=== PATIENT | male | born 1985 | race Caucasian/White ===

== ENCOUNTER 2023-10-28 09:30 | Outpatient (CLI) | payer MEDICARE, MEDICAID, SELFPAY ==
--- OUTSIDE RECORDS SUMMARY | 2023-10-28 09:35 | XMS_ITS | Encounter Summary ---
Author Name Unknown Organization [facility] Address [address] [place] [address] Care Team Providers Care Cryptographic Clerk Name Role Phone Found, No Pcp MD Primary Care Provider Unavailab le Reason for Visit * Reason Comments FOLLOW-UP, TEST RESULTS Encounter Details Date Type Department Care Team Description 10/21/2023 Telephone [facility] [address] [place] [address]. [place], [place] [id number] Alicia Lopez MD [address] [place] [id number] FOLLOW-UP, TEST RESULTS Social History Tobacco Use Types Packs/Day Years Used Date Smoking Tobacco: Every Day Cigarettes Smokeless Tobacco: Never Alcohol Use Standard Drinks/Week Comments Yes 0 (1 standard drink = 0.6 oz pur e alcohol) Sex and Gender Information Value Date Recorded Sex Assigned at Not on file Gender Identity Not on file Sexual Orientation Not on file documented as of this encounter Nursing Notes * Margaret Quijano RN - 10/21/2023 9:33 AM CST Spoke with patient regarding note below and relayed the information from Dr. Lopez. Patient verbalized understanding and was transferred to schedule with Dr. Lopez in 6 weeks. Margaret Quijano RN 10/21/2023, 9:34 AM COURSE BARRIER ATTENDANT * Margaret Quijano RN - 10/21/2023 9:31 AM CST ----- Message from Alicia Lopez MD sent at 10/21/2023 7:57 AM RACECOURSE BARRIER ATTENDANT ----- Regarding: follow up Gurvinder Castro came in on Wednesday to see me for concern of an infection/abscess. His CT scan just came back with no evidence of a deep infection. His inflammatory lab CRP is also reassuring at 1.4 lower than 4 weeks ago. Can you please call and reassure Gurvinder? I will see him again in 6 weeks. Thank you Alicia COURSE BARRIER ATTENDANT documented in this encounter Plan of Treatment Upcoming Encounters Date Type Department Care Team Description 11/29/2023 1:20 PM RACECOURSE BARRIER ATTENDANT Appointment [facility] [address] [place] [address]. [place] [address] Alicia Lopez MD [address] [place] [address] documented as of this encounter Visit Diagnoses Not on filedocumented in this encounter Care Teams Cryptographic Clerk Relationship Specialty Start Date End Date Found, No PcpMD [address] [place] [address] PCP - General 05/25/23 documented as of this encounter
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
--- OUTSIDE RECORDS SUMMARY | 2023-10-28 09:35 | XMS_ITS | Encounter Summary ---
Author Name Unknown Organization [facility] Address [address] [place] [address] Care Team Providers Care Structural Iron Erector Name Role Phone Found, No Pcp MD Primary Care Provider Unavailab le Reason for Visit * Procedure/Equipment (Routine) - Incomplete Specialty Diagnoses / Procedures Referred By Contac t Referred To Contact Diagnoses Postoperative examination Procedures XR Knee Rt 2 Views Alicia Lopez MD [address] [place] [address] Referral ID Status Reason Start Date Expiration Date V isits Requested Visits Authorized [id number] Incomplete 10/18/2023 01/16/2025 1 1 Encounter Details Date Type Department Care Team Description 10/18/2023 8:45 AM LAST MODEL DEPARTMENT SUPERVISOR Ancillary Procedure [facility] [address] [place] [address] Alicia Lopez MD [address] [place] [address] Postoperative examination Social History Tobacco Use Types Packs/Day Years Used Date Smoking Tobacco: Every Day Cigarettes Smokeless Tobacco: Never Alcohol Use Standard Drinks/Week Comments Yes 0 (1 standard drink = 0.6 oz pur e alcohol) Sex and Gender Information Value Date Recorded Sex Assigned at Not on file Gender Identity Not on file Sexual Orientation Not on file documented as of this encounter Plan of Treatment Upcoming Encounters Date Type Department Care Team Description 11/29/2023 1:20 PM LAST MODEL DEPARTMENT SUPERVISOR Appointment [facility] [address] [place] [address] Alicia Lopez MD [address] [place] [address] documented as of this encounter Procedures Procedure Name Priority Date/Time Associated Diagnosis Comments XR FEMUR LT 2 VIEWS Routine 10/18/2023 9 :04 AM LAST MODEL DEPARTMENT SUPERVISOR Postoperative examination XR KNEE RT 2 VIEWS Routine 10/18/2023 9: 04 AM LAST MODEL DEPARTMENT SUPERVISOR Postoperative examination documented in this encounter Results * XR Knee Rt 2 Views (10/18/2023 9:04 AM LAST MODEL DEPARTMENT SUPERVISOR) Anatomical Region Laterality Modality Lower Extremity, Knee Computed R adiography 10/18/2023 9:04 AM LAST MODEL DEPARTMENT SUPERVISOR Narrative 10/18/2023 9:54 AM LAST MODEL DEPARTMENT SUPERVISOR EXAM: XR KNEE RT 2 VIEWS LOCATION: [place] [address] DATE: 10/18/2023 INDICATION: Post op, Encounter for follow-up examination afte COMPARISON: 09/23/2023 IMPRESSION: Proximal tibial ORIF. The fourth screw from the bottom is fracture similar to prior. Otherwise hardware is intact. Unchanged alignment. Procedure Note Sandra Simon MD - 10/18/2023 EXAM: XR KNEE RT 2 VIEWS LOCATION: [place] [address] DATE: 10/18/2023 INDICATION: Post op, Encounter for follow-up examination afte COMPARISON: 09/23/2023 IMPRESSION: Proximal tibial ORIF. The fourth screw from the bottom isfracture similar to prior. Otherwise hardware is intact. Unchangedalignment. Alicia Lopez MD RAD GD * XR Femur Lt 2 Views (10/18/2023 9:04 AM LAST MODEL DEPARTMENT SUPERVISOR) Anatomical Region Laterality Modality Lower Extremity, Leg, Thigh Comp uted Radiography 10/18/2023 9:04 AM LAST MODEL DEPARTMENT SUPERVISOR Narrative 10/18/2023 9:53 AM LAST MODEL DEPARTMENT SUPERVISOR EXAM: XR FEMUR LT 2 VIEWS LOCATION: [place] [address] DATE: 10/18/2023 INDICATION: Post op, Encounter for follow-up examination afte COMPARISON: 09/06/2023. IMPRESSION: Locked intramedullary adair and screw fixation across a left distal femur fracture. Fracture lines remain visible on the lateral view. No evidence of hardware failure. No interval change in alignment. Procedure Note Bijan Gauthier MD - 10/18/2023 EXAM: XR FEMUR LT 2 VIEWS LOCATION: [facility] 435 DATE: 10/18/2023 INDICATION: Post op, Encounter for follow-up examination afte COMPARISON: 09/06/2023. IMPRESSION: Locked intramedullary adair and screw fixation across a leftdistal femur fracture. Fracture lines remain visible on the lateral view.No evidence of hardware failure. No interval change in alignment. Alicia Lopez MD RAD GD documented in this encounter Visit Diagnoses Diagnosis Postoperative examination Follow-up examination, following unspecified surgery documented in this encounter Care Teams Structural Iron Erector Relationship Specialty Start Date End Date Found, No PcpMD [address] [place] [address] PCP - General 05/25/23 documented as of this encounter
--- OUTSIDE RECORDS SUMMARY | 2023-10-28 09:35 | XMS_ITS | Encounter Summary ---
Author Name Unknown Organization [facility] Address [address] [place] [address] Care Team Providers Care Banking Services Advisor Name Role Phone Found, No Pcp MD Primary Care Provider Unavailab le Reason for Visit * Procedure/Equipment (Routine) - Incomplete Specialty Diagnoses / Procedures Referred By Contac t Referred To Contact Procedures XR Tibia Fibula Rt 2 Views Neil Estrada MD [address] [place] [address] Referral ID Status Reason Start Date Expiration Date V isits Requested Visits Authorized [id number] Incomplete 09/23/2023 12/22/2024 1 1 Encounter Details Date Type Department Care Team Description 09/23/2023 7:40 PM BOAT RIGGER Ancillary Procedure [facility] [address] [place] [address] Social History Tobacco Use Types Packs/Day Years [...] Department Care Team Description 11/29/2023 1:20 PM BOAT RIGGER Appointment [facility] [address] [place] [address] Alicia Lopez MD [address] [place], [place] [phone] documented as of this encounter Procedures Procedure Name Priority Date/Time Associated Diagnosis Comments XR TIBIA FIBULA RT 2 VIEWS STAT 09/23/2023 8:19 PM BOAT RIGGER documented in this encounter Results * XR Tibia Fibula Rt 2 Views (09/23/2023 8:19 PM BOAT RIGGER) Anatomical Region Laterality Modality Lower Extremity, Knee, Leg, Foot & Ankle Computed Radiography 09/23/2023 8:19 PM BOAT RIGGER Narrative 09/23/2023 8:28 PM BOAT RIGGER EXAM: XR TIBIA FIBULA RT 2 VIEWS LOCATION: [facility] DATE: 09/23/2023 INDICATION: RLE pain, some discharge from surgical incision noted at home, concern for possible fluid collection or bony changes., PAIN COMPARISON: 07/27/2023 IMPRESSION: Proximal tibial ORIF. Fractures of 2 of the orthopedic screws redemonstrated. No plain film evidence of loosening. No kelsy bony destruction to suggest osteomyelitis. Distal tibia and fibula are intact. Moderate degenerative changes in the knee. Procedure Note Patricio Koo MD - 09/23/2023 EXAM: XR TIBIA FIBULA RT 2 VIEWS LOCATION: [facility] DATE: 09/23/2023 INDICATION: RLE pain, some discharge from surgical incision noted at home,concern for possible fluid collection or bony changes., PAIN COMPARISON: 07/27/2023 IMPRESSION: Proximal tibial ORIF. Fractures of 2 of the orthopedic screwsredemonstrated. No plain film evidence of loosening. No kelsy bonydestruction to suggest osteomyelitis. Distal tibia and fibula are intact.Moderate degenerative changes in the knee. Neil Estrada MD RAD GD documented in this encounter Visit Diagnoses Not on filedocumented in this encounter Care Teams Banking Services Advisor Relationship Specialty Start Date End Date Found, No Pcp, [address] [place] [address] PCP - General 05/25/23 documented as of this encounter
--- OUTSIDE RECORDS SUMMARY | 2023-10-28 09:35 | XMS_ITS | Encounter Summary ---
Author Name Unknown Organization [facility] Address [address] [place] [address] Care Team Providers Care Raisin Separator Operator Name Role Phone Found, No Pcp MD Primary Care Provider Unavailab le Reason for Visit * Procedure/Equipment (Routine) - Incomplete Specialty Diagnoses / Procedures Referred By Contac t Referred To Contact Diagnoses Tibial plateau fracture, right, closed, with nonunion, subsequent encounter Procedures CT Knee Rt WO IV Cont Alicia Lopez MD [address] [place] [id number] Referral ID Status Reason Start Date Expiration Date V isits Requested Visits Authorized [id number] Incomplete 10/18/2023 01/16/2025 1 1 Encounter Details Date Type Department Care Team Description 10/18/2023 9:15 AM NEWSPAPER SUBSCRIPTION SOLICITOR Ancillary Procedure [facility] [address] [place] [address]. [place], [place] [id number] Alicia Lopez MD [address] [place] [phone] Tibial plateau fracture, right, closed, with nonunion, subsequent encounter Social History Tobacco Use Types Packs/Day Years [...] Department Care Team Description 11/29/2023 1:20 PM NEWSPAPER SUBSCRIPTION SOLICITOR Appointment [facility] 435 Orthopedics Clinic [address] [facility] [place] [address] Alicia Lopez MD [address] [place] [address] documented as of this encounter Procedures Procedure Name Priority Date/Time Associated Diagnosis Comments CT KNEE RT WO IV CONT Routine 10/18/2023 9:35 AM NEWSPAPER SUBSCRIPTION SOLICITOR Tibial plateau fracture, right, closed, with nonunion, subsequent encounter documented in this encounter Results * CT Knee Rt WO IV Cont (10/18/2023 9:35 AM NEWSPAPER SUBSCRIPTION SOLICITOR) Anatomical Region Laterality Modality Lower Extremity, Knee, Leg, Skeletal, Thigh Computed Tomography 10/18/2023 9:35 AM NEWSPAPER SUBSCRIPTION SOLICITOR Narrative 10/18/2023 3:50 PM NEWSPAPER SUBSCRIPTION SOLICITOR EXAM: CT KNEE RT WO IV CONT LOCATION: [place] [address] DATE: 10/18/2023 INDICATION: Evaluate healing of medial [...] RT WO IV CONT [facility]: [facility] DATE: 10/18/2023 INDICATION: Evaluate healing [...] of reduction. Alicia Lopez MD RAD CT documented in this encounter Visit Diagnoses Diagnosis Tibial plateau fracture, right, closed, with nonunion, subsequent encounter documented in this encounter Care Teams Raisin Separator Operator Relationship Specialty Start Date End Date Found, No Pcp, [address] [place] [address] PCP - General 05/25/23 documented as of this encounter
--- OUTSIDE RECORDS SUMMARY | 2023-10-28 09:35 | XMS_ITS | Encounter Summary ---
Author Name Unknown Organization [facility] Address [address] [place] [address] Care Team Providers Care Insurance Biller Name Role Phone Found, No Pcp MD Primary Care Provider Unavailab le Encounter Details Date Type Department Care Team Description 10/18/2023 10:00 AM LEGAL SERVICE SPECIALIST Lab Visit [facility] [address] [place] [id number] Postoperative examination; Tibial plateau fracture, right, closed, with nonunion, [...] Department Care Team Description 11/29/2023 1:20 PM LEGAL SERVICE SPECIALIST Appointment [facility] [address] [place] [id number] Alicia Lopez MD [address] [place] [address] documented as of this encounter Procedures Procedure Name Priority Date/Time Associated Diagnosis Comments C-REACTIVE PROTEIN Routine 10/18/2023 10 :08 AM LEGAL SERVICE SPECIALIST Postoperative examination Tibial plateau fracture, right, closed, with nonunion, subsequent encounter documented in this encounter Results * (ABNORMAL) C-Reactive Protein (10/18/2023 10:08 AM LEGAL SERVICE SPECIALIST) C-Reactive Protein 1.4(H) 0.0 - 0.5 mg/dL 10/18/2023 2:27 PM LEGAL SERVICE SPECIALIST [facility] Blood Venipuncture / Unknown 10/18/2023 10:08 AM LEGAL SERVICE SPECIALIST 10/18/2023 10:08 AM LEGAL SERVICE SPECIALIST Alicia Lopez MD LAB_1 Performing Organization Address City/State/[facility] Co de Phone Number [facility] [address] [phone] documented in this encounter Visit Diagnoses Diagnosis Postoperative examination Follow-up examination, following unspecified surgery Tibial plateau fracture, right, closed, with nonunion, subsequent encounter documented in this encounter Care Teams Insurance Biller Relationship Specialty Start Date End Date Found, No Pcp, [address] [place] [address] PCP - General 05/25/23 documented as of this encounter
--- OUTSIDE RECORDS SUMMARY | 2023-10-28 09:35 | XMS_ITS | Encounter Summary ---
Author Name Unknown Organization [facility] Address [address] [place] [address] Care Team Providers Care Oral Therapist Name Role Phone Found, No Pcp MD Primary Care Provider Unavailab le Reason for Visit * (Routine) - Incomplete Specialty Diagnoses / Procedures Referred By Contac t Referred To Contact Procedures POC US Soft Tissue Neil Estrada MD [address] [place] [address] Referral ID Status Reason Start Date Expiration Date V isits Requested Visits Authorized [id number] Incomplete 09/23/2023 12/22/2024 1 1 Encounter Details Date Type Department Care Team Description 09/23/2023 7:25 PM SUPPLY CHAIN LOGISTICS MANAGER Ancillary Procedure [facility] POC US ED [address] [place] [id number] Social History Tobacco Use Types Packs/Day Years [...] Department Care Team Description 11/29/2023 1:20 PM SUPPLY CHAIN LOGISTICS MANAGER [facility]ointment [facility] Clinic [address] [place] [address] Alicia Lopez MD [address] [place] [address] documented as of this encounter Procedures Procedure Name Priority Date/Time Associated Diagnosis Comments POC US SOFT TISSUE Routine 09/23/2023 7: 24 PM SUPPLY CHAIN LOGISTICS MANAGER documented in this encounter Results * POC US Soft Tissue (09/23/2023 7:24 PM SUPPLY CHAIN LOGISTICS MANAGER) Anatomical Region Laterality Modality Other Narrative 09/23/2023 8:04 PM SUPPLY CHAIN LOGISTICS MANAGER Handy Chavez MD ? 09/23/2023 ??8:05 PM [facility] Point of Care Ultrasound Interpretation POC US Soft Tissue Date/Time: 09/23/2023 8:04 PM Performed by: Handy Chavez MD Authorized by: Neil Estrada MD ?? Point of Care Ultrasound: Soft Tissue Indication: ??Soft tissue redness/swelling Window: Adequate for full imaging and interpretation Findings/ Impression (Within the context of limited [id number] ultrasound): ??No fluid collection and Findings consistent with: Chronic changes of surgical incision sites, no obvious fluid collections or abscess formation. Neil Estrada MD RAD POC US documented in this encounter Visit Diagnoses Not on filedocumented in this encounter Care Teams Oral Therapist Relationship Specialty Start Date End Date Found, No PcpMD [address] [place] [address] PCP - General 05/25/23 documented as of this encounter
--- OUTSIDE RECORDS SUMMARY | 2023-10-28 09:35 | XMS_ITS | Clinical Summary ---
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 mg/dL. GFR, Estimated >60 >60 mL/min/1.7 3m2 07/28/2023 7:58 AM [facility] Blood Venipuncture Butterfly / Unknown 07/28/2023 7:08 AM CDT 07/28/2023 7:12 AM CDT Mariposa Gusman APRN, CNP LAB_[address] [phone] * Platelets (07/28/2023 7:08 AM CDT) Platelets 206 150 - 450 x10(9)/L 07/28/2023 7:28 AM [facility] Blood Venipuncture Butterfly / Unknown 07/28/2023 7:08 AM CDT 07/28/2023 7:12 AM CDT Mariposa Gusman APRN, CNP LAB_1 [place] [address], [facility] [phone] * (ABNORMAL) Hemoglobin, Blood (07/28/2023 7:08 AM CDT) Hemoglobin 11.4(L) 13.5 - 17.5 g/dL 07/28/2023 7:28 AM CDT [facility] Blood Venipuncture Butterfly / Unknown 07/28/2023 7:08 AM CDT 07/28/2023 7:12 AM CDT Mariposa Kelley [employer] JOANN AVERY LAB_[address] [address], [facility] [phone] from Last 3 Months Advance Directives Latest Code Status on File Code Status Date Activated Date Inactivated Comments Full Code 07/27/2023 5:15 PM 07/28/2023 6:24 PM Code Status History Code Status Date Activated Date Inactivated Comments Full Code 10/24/2021 5:51 AM 11/05/2021 2:05 PM Full Code 10/23/2021 9:56 PM 10/24/2021 5:51 AM Care Teams Agent Producer Relationship Specialty Start Date End Date Found, No Pcp, [address] [place] [address] PCP - General 05/25/23
--- OUTSIDE RECORDS SUMMARY | 2023-10-28 09:36 | XMS_ITS | Encounter Summary ---
Author Name Unknown Organization [facility] Address [address] [place] [address] Care Team Providers Care Roll Cutting Operator Name Role Phone Found, No Pcp Primary Care Provider Unavailab le Encounter Details Date Type Department Care Team Description 07/27/2023 Orders Only [facility] DEPARTMENT Provider, [place] [address] Social History Tobacco Use Types Packs/Day Years Used Date Smoking Tobacco: Never Smokeless Tobacco: Never Alcohol Use Standard Drinks/Week Comments Yes 0 (1 standard drink = 0.6 oz pur e alcohol) Sex and Gender Information Value Date Recorded Sex Assigned at Not on file Gender Identity Not on file Sexual Orientation Not on file documented as of this encounter Plan of Treatment Upcoming Encounters Date Type Department Care Team Description 11/29/2023 1:20 PM PLAYER DEVELOPMENT MANAGER Appointment [facility] [address] [place] [address]. [place] [address] Alicia Lopez MD [address] [place] [address] [phone] documented as of this encounter Procedures Procedure Name Priority Date/Time Associated Diagnosis Comments EKG 07/27/2023 documented in this encounter Results * EKG (07/27/2023) Interface Provider EKG documented in this encounter Visit Diagnoses Not on filedocumented in this encounter Care Teams Roll Cutting Operator Relationship Specialty Start Date End Date Found, No Pcp, [address] [place] [address] PCP - General 05/25/23 documented as of this encounter
--- OUTSIDE RECORDS SUMMARY | 2023-10-28 09:36 | XMS_ITS | Encounter Summary ---
Author Name Unknown Organization [facility] Address [address] [place] [address] Care Team Providers Care Ocean Fishing Guide Name Role Phone Found, No Pcp MD Primary Care Provider Unavailab le Reason for Visit * Auth/Cert Specialty Diagnoses / Procedures Referred By Contac t Referred To Contact Diagnoses Tibial plateau fracture, right, closed, with nonunion, subsequent encounter . Procedures OPEN REDUCTION INTERNAL FIXATION TIBIAL PLATEAU FRACTURE Referral ID Status Reason Start Date Expiration Date Visits Re quested Visits Authorized [id number] 1 1 Encounter Details Date Type Department Care Team Description 07/27/2023 5:25 PM CDT Ancillary Procedure [facility] [address] [place] [id number] Alicia Lopez MD [address] [place] [address] [phone] Social History Tobacco Use Types Packs/Day Years [...] Department Care Team Description 11/29/2023 1:20 PM FIRE TENDER Appointment [facility] [address] [place] [address] Alicia Lopez MD [address] [place] [address] [phone] documented as of this encounter Procedures Procedure Name Priority Date/Time Associated Diagnosis Comments XR KNEE RT 2 VIEWS Routine 07/27/2023 5: 50 PM CDT documented in this encounter Results * XR Knee Rt 2 Views (07/27/2023 5:50 PM CDT) Anatomical Region Laterality Modality Lower Extremity, Knee Computed R adiography 07/27/2023 5:50 PM CDT Narrative 07/27/2023 9:29 PM CDT EXAM: XR KNEE RT 2 VIEWS LOCATION: [facility] DATE: 07/27/2023 INDICATION: Status post revision open reduction internal fixation of right tibial fracture. COMPARISON: 05/10/2023. IMPRESSION: Postsurgical changes from plate and screw fixation of the proximal tibial fracture. The medial and lateral side plates appear unchanged. There is a new posterior plate with screws. There is new hyperdensity at the fracture site, likely representing graft placement. No evidence of immediate hardware complication. Adjacent postsurgical soft tissue swelling and gas. No evidence of new acute fracture. No dislocation. No significant knee joint effusion. Procedure Note Dale Swartz MD - 07/27/2023 EXAM: XR KNEE RT 2 VIEWS LOCATION: [facility] DATE: 07/27/2023 INDICATION: Status post revision open reduction internal fixation of righttibial fracture. COMPARISON: 05/10/2023. IMPRESSION: Postsurgical changes from plate and screw fixation of the proximal tibialfracture. The medial and lateral side plates appear unchanged. There is anew posterior plate with screws. There is new hyperdensity at the fracturesite, likely representing graft placement. No evidence of immediatehardware complication. Adjacent postsurgical soft tissue swelling andgas. No evidence of new acute fracture. No dislocation. No significant knee joint effusion. Mariposa Gusman POCKET MACHINE OPERATOR, CHIEF RESOURCE OFFICER RAD GD documented in this encounter Visit Diagnoses Not on filedocumented in this encounter Care Teams Ocean Fishing Guide Relationship Specialty Start Date End Date Found, No PcpMD [address] [place] [address] PCP - General 05/25/23 documented as of this encounter
--- OUTSIDE RECORDS SUMMARY | 2023-10-28 09:36 | XMS_ITS | Encounter Summary ---
Author Name Unknown Organization [facility] Address [address] [place] [address] Care Team Providers Care Floor Person Name Role Phone Found, No Pcp MD Primary Care Provider Unavailab le Reason for Visit * Reason Comments QUESTIONS, GENERAL Encounter Details Date Type Department Care Team Description 07/29/2023 Telephone [facility] [address] [place] [address]. [place], [place] [phone] Alicia Lopez MD [address] [place] [address] [phone] QUESTIONS, GENERAL Social History Tobacco Use Types Packs/Day Years [...] Nursing Notes * Margaret Quijano RN - 08/02/2023 8:[address] Lopez stated she could see the pt today to discuss his images. Called and pt is in agreement with this and is scheduled with Dr. Lopez today. Margaret Quijano RN 08/02/2023, 8:45 AM * Margaret Quijano RN - 07/29/2023 10:17 AM CDT Called and spoke with the patient. He states he had reviewed the XR and it seems like there was more work done than expected. Seems like there is a lot of bone missing. He does request to speak directly to Dr. Lopez. He is aware it would most likely be early next week. Please advise thank you. Margaret Quijano RN 07/29/2023, 10:26 AM * Jane Craft - 07/29/2023 9:53 AM CDT GENERAL QUESTIONS How may we help you today? Patient would like to speak with a member of Dr. Lopez's care team Describe your symptoms/concerns: patient wanted to speak with Dr. 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 Lopez If we are unable to reach you can we leave a detailed message on your voicemail? Yes If we are unable to reach you can we send you a message in [employer]? No [Supervisor Vacuum Metalizing/Gravel Wheeler: Relay to patient; We make every effort to get back to you sameday, however it may take 1-2 business days depending on the nature of the communication.] Jane Craft 07/29/2023, 9:55 AM documented in this encounter Plan of Treatment Upcoming Encounters Date Type Department Care Team Description 11/29/2023 1:20 PM DIRECTOR PROCESS Appointment [facility] [address] [place] [address]. [place] [address] Alicia Lopez MD [address] [place] [address] [place] [address] documented as of this encounter Visit Diagnoses Not on filedocumented in this encounter Care Teams Floor Person Relationship Specialty Start Date End Date Found, No Pcp, [address] [place] [address] PCP - General 05/25/23 documented as of this encounter
--- OUTSIDE RECORDS SUMMARY | 2023-10-28 09:36 | XMS_ITS | Encounter Summary ---
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 Care - Admitted Since 07/27/2023 No services have been selected for the patient. Transport Needs: Discharge Transport Needs: Family or friend will provide If family or friend will provide discharge transport, provide name and contact information: mom to transport Interdisciplinary Rounding done with:: Ebd Special Education Teacher, Charge Nurse, Practitioner, Dietitian/Nutrition Services If the patient is medically cleared and ready for discharge, are there any psychosocial barriers atdischarge?: No psychosocial barriers Primary Care: Primary Care Clinic: [facility] Primary Care Physician: Annemarie Young Functional Level Prior: Functional Screen (Baseline Prior to Admission) Ambulation: Assitive equipment Transferring: Independent Toileting: Independent Bathing: Assistive equipment Dressing: Independent Eating: Independent Communication: Understands/communicates without difficulty Swallowing: Swallows foods/liquids without difficulty Meal Preparation: Independent Laundry: Independent Finances: Independent Shopping: Independent 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 Met with patient, introduced myself and my role as window caser/social security benefits interviewer. Verified demographics (address, emergency contact, PCP and insurance). Patient currently lives with mother in a house with 4 stairs to enter and 10 stairs within their home. His bedroom is on the 1st level of the home. His baseline mobility is independent with ADLs and uses DME (prothesis and shower chair) at home. Denies current or previous services at home. Has support from mom. Patient denied any concerns related to chemical or mental health. Per chart review patient has a history of opoid use disorder and is currently managing symptoms with suboxone. Patient uses own automobile to get to their medical appointments. PCP is Annemarie Young at [facility]. Patients denies case management community support. Admitted for closed fracture of right tibial plateau on 07/27/2023. Patient not medically cleared and not ready for discharge, pending clinical improvement and medicalclearance. Provider anticipates patient will need another 0-1 more days in the hospital for med clearance. Anticipated Discharge Plan: Home Barriers to their discharge: N/A Community Resources: N/A Anticipated transport at time of discharge: mother to transport CM/SW Team will continue to follow for coordination of care, discharge planning and offer support as needed. PABLO Crane * Plan of Care - Aniyah Rodriguez RN - 07/28/2023 10:55 AM CDT [facility] Plan of Care Note Assessment: Plan of Care Plan: Assess and Intervene as Needed Subjective: Pain is constant and really achy and it feels like there is a lot of pressure and pulling behind my knee. Objective: A&Ox4. Communicates needs. Pt complained of 9/10 pain on RLE, mainly behind knee andback of thigh. Assess skin color, pedal & popliteal pulse, cap refill- all WDL. Able to wiggle toes and plantar flexion/extension. PRN PO pain meds given, ice/heat- pain controlled. VSS. --- End of Report --- * Plan of Care - Jimmie Quinones RN - 07/28/2023 7:44 AM CDT [facility] Plan of Care Note Assessment: Plan of care Plan: Assess and intervene as needed. Subjective: I hope to get out of here quick. Objective: A&O x4. CO 9/10 pain to RLE, medicated per MAR with PRN Ketamine, Dilaudid and Robaxin, not effective per pt. Denies CP, SOB, N/V, and dizziness. Declined skin assessment. RLE elevated. Tolerating IV Abx. Call light within reach. Able to make needs known. Bed alarm on for safety. Blood pressure 110/56, Pulse 70, Temp 98.8, SpO2 94%, Respirations 16. --- End of Report --- * Plan of Care - Niraj Dooley RN - 07/27/2023 8:54 PM CDT Patient is alert and oriented x4. VSS. Continues to have right leg pain rating 7/10. Given PRN painmedication x3. Declined skin assessment. Affected leg is intact with yazan wrap. CMS intact.On IV fluid not urinating yet. Started ANCEF 1 g IV for surgical prophylaxis. Patient had clear liquid no N/Vverbalized then advanced regular diet. No concerns at this time will continue with POC. * Plan of Care - Khushboo Lux RN - 07/27/2023 3:17 PM CDT I completed a full assessment and assessments as ordered and per policy on this patient during my work shift. Reassessments completed during my work shift are unchanged unless documented. documented in this encounter Admitting Diagnoses Diagnosis Closed fracture of right tibial plateau Tibial plateau fracture, right, closed, with nonunion, subsequent encounter documented in this encounter Administered Medications Inactive Administered Medications - up to 3 most recent administrations Medication Order MAR Action Action Date Dose Rate Site acetaminophen (TYLENOL) tablet 1,000 mg 1,000 mg, Oral, TID, First dose on Wed07/27/23 at 2000, Until Discontinued Given 07/28/2023 2:20 PM CDT 1,000 mg Given 07/28/2023 8:16 AM CDT 1,000 mg Given 07/27/2023 7:23 PM CDT 1,000 mg aspirin tablet 325 mg 325 mg, Oral, DAILY, First dose on Wed07/28/23 at 0800, Until Discontinued Given 07/28/2023 8:16 AM CDT 325 mg bisacodyl (DULCOLAX) rectal suppository 10 mg 10 mg, Rectal, DAILY PRN, Constipation, No stool in the last 3 days, Starting on Wed07/27/23 at 1714, Until Wed07/28/23 at 1817, Cumulative bowel medication orders. If no stool in last day start Senna-S BID PRN no stool, if no stool in last 2 days add Miralax DAILY PRN no stool, if no stool in last 3 days add bisacodyl suppository DAILY PRN until patient stools. When patient stools stop giving PRN meds and continue monitoring for bowel activity. When no stools X 1 day, begin regimen again until patient stools., Post-op buprenorphine-naloxone (SUBOXONE) 2-0.5 MG per film 2 Film 2 Film, Sublingual, BID, First dose on Wed07/29/23 at 0800, Until Discontinued, Do not cut, chew, or swallow film. For sublingual administration: Place film under the tongue close to the base on the left or right side until the film completely dissolves. If two films are needed for a single dose, place the second film under the tongue on the opposite side from the first film in a manner to minimize overlapping as much as possible. Avoid eating or drinking until film dissolves. Once film is completely dissolved, swish a sip of water around teeth and gums and swallow to avoid damage to these areas; wait at least 1 hour after administration to brush teeth. For buccal administration: Place one film on the inside of the right or left cheek. If more than one film is needed, the additional film should be placed on the inside of the opposite cheek. Keep the film on the inside of the cheek until completely dissolved. Once film is completely dissolved, swish a sip of water around teeth and gums and swallow to avoid damage to these areas; wait at least 1 hour after administration to brush teeth. buprenorphine-naloxone (SUBOXONE) 8-2 MG per film 1 Film 1 Film, Sublingual, DAILY, First dose on Wed07/28/23 at 0800, Until Discontinued, Do not cut, chew, or swallow film. For sublingual administration: Place film under the tongue close to the base on the left or right side until the film completely dissolves. If two films are needed for a single dose, place the second film under the tongue on the opposite side from the first film in a manner to minimize overlapping as much as possible. Avoid eating or drinking until film dissolves. Once film is completely dissolved, swish a sip of water around teeth and gums and swallow to avoid damage to these areas; wait at least 1 hour after administration to brush teeth. For buccal administration: Place one film on the inside of the right or left cheek. If more than one film is needed, the additional film should be placed on the inside of the opposite cheek. Keep the film on the inside of the cheek until completely dissolved. Once film is completely dissolved, swish a sip of water around teeth and gums and swallow to avoid damage to these areas; wait at least 1 hour after administration to brush teeth. Given 07/28/2023 11:02 AM CDT 1 Film ceFAZolin (ANCEF) 1 g in sodium chloride 0.9 % 50 mL IVPB ADS 1 g, Intravenous, Administer over 30 Minutes, Q8H (NON-STND), First dose on Wed07/27/23 at 2000, For 2 doses, Give x 24 hours, if first dose given pre-op, continue X 2 more doses for total 24h therapy Give first post-op dose 8 hours after previous dose. Started 07/28/2023 3:37 AM CDT 1 g Started 07/27/2023 8:27 PM CDT 1 g dextrose (D50) IVPB 25 g 25 g, Intravenous, Q15MIN PRN, Hypoglycemia, Per Adult Hypoglycemia Treatment Protocol, Starting on Wed07/27/23 at 1715, Per Hypoglycemic episode: Give 25g IV push, recheck POCT glucose in 15 minutes, if result less than 70mg/dL, may repeat. After 2 doses notify Practitioner. May continue to treat while waiting for call back. enoxaparin (LOVENOX) prefilled syringe 30 mg 30 mg, Subcutaneous, BID, First dose on Wed07/27/23 at 2000, Last dose on Wed08/10/23 at 0800, For 28 doses, For VTE/DVT prophylaxis HIGH ALERT medication Given 07/27/2023 8:27 PM CDT 30 mg Abdom inal Tissue fentaNYL (SUBLIMAZE) injection 25-50 mcg 25-50 mcg, Intravenous, [id number], Pain, Starting on Wed07/27/23 at 1248, Until Wed07/27/23 at 1705, 25 mcg IV q5min prn based on the patient's pain scale rating for mild to moderate pain (1 to 5). 50 mcg IV q5min prn based on the patient's pain scale rating for moderate to severe pain (6 to 10). Total PACU fentanyl dose not to exceed 200 mcg. Use fentanyl initially for a short acting agent for treatment of acute post operative pain. May use in conjuction with a longer acting agent for optimal pain control. Respiratory rate must be greater than 10 to administer medications., PACU (only) Given 07/27/2023 3:15 PM CDT 50 mcg Given 07/27/2023 3:00 PM CDT 50 mcg Given 07/27/2023 2:50 PM CDT 50 mcg gabapentin (NEURONTIN) capsule 800 mg 800 mg, Oral, TID, First dose on Wed07/27/23 at 2000, Until Discontinued Given 07/28/2023 2:20 PM CDT 800 mg Given 07/28/2023 8:14 AM CDT 800 mg Given 07/27/2023 7:22 PM CDT 800 mg glucagon rDNA (diagnostic) (GLUCAGEN) injection 1 mg 1 mg, Intramuscular, Q15MIN PRN, Hypoglycemia, Per Adult Hypoglycemia Treatment Protocol, Starting on Wed07/27/23 at 1715, Until Wed07/28/23 at 1817, Per Hypoglycemic episode: Give 1mg IM, turn patient on side to prevent aspiration if vomits. If appropriate, establish IV access STAT. Recheck POCT glucose in 15 minutes, if result less than 70mg/dL and still no IV access, may repeat 1mg IM x 1. Recheck POCT glucose in 15 minutes, if result is less than 70mg/dL notify Practitioner. glucose (GLUTOSE) 40 % oral gel 15 g of glucose 15 g of glucose, Oral, Q15MIN PRN, Hypoglycemia, Per Adult Hypoglycemia Treatment Protocol, Starting on Wed07/27/23 at 1715, Until Wed07/28/23 at 181, Give 15g orally, recheck POCT glucose in 15 minutes, if result less than 70mg/dL, may repeat. After 2 doses notify Practitioner. May continue to treat while waiting for call back. 37.5g tube delivers 15g of glucose HYDROmorphone (DILAUDID) injection 0.5 mg 0.5 mg, Intravenous, Q10MIN PRN, Pain, Starting on Wed07/27/23 at 1338, Until Wed07/28/23 at 1047, For 12 doses, PACU USE ONLY Total PACU hydromorphone dose not to exceed 6 mg per hour Given 07/27/2023 4:30 PM CDT 0.5 mg Given 07/27/2023 4:00 PM CDT 0.5 mg Given 07/27/2023 3:35 PM CDT 0.5 mg HYDROmorphone (DILAUDID) injection 1 mg 1 mg, Intravenous, ONCE, On Wed07/27/23 at 1415, For 1 dose Given 07/27/2023 1:55 PM CDT 1 mg HYDROmorphone (DILAUDID) tablet 4-6 mg 4-6 mg, Oral, Q3H PRN, Pain, Starting on Wed07/27/23 at 1442, Until Wed07/28/23 at 1817 Given 07/28/2023 3:26 PM CDT 6 mg Given 07/28/2023 8:15 AM CDT 6 mg Given 07/27/2023 8:37 PM CDT 4 mg hydrOXYzine pamoate (VISTARIL) capsule 50 mg 50 mg, Oral, ONCE, On Wed07/27/23 at 1400, For 1 dose Given 07/27/2023 1:48 PM CDT 50 mg ketamine (KETALAR) injection 5-10 mg 5-10 mg, Intravenous, Q4H PRN, Pain, Starting on Wed07/27/23 at 1443, Until Wed07/28/23 at 1817, Ketamine 5-10 mg IV given over 2-3 minutes Q4H PRN. Given 07/28/2023 4:45 AM CDT 5 mg Given 07/27/2023 10:16 PM CDT 5 mg lactated ringers infusion Intravenous, at 30 mL/hr, CONTINUOUS, Starting on Wed07/27/23 at 0845, Pre-op Started 07/27/2023 11:36 AM CDT Restarted 07/27/2023 9:29 AM CDT Started 07/27/2023 8:58 AM CDT 30 mL/hr methocarbamol (ROBAXIN) tablet 500 mg 500 mg, Oral, Q6H PRN, Muscle Spasms, Starting on Wed07/27/23 at 1715, Until Wed07/28/23 at 1344 Given 07/28/2023 6:52 AM CDT 500 mg Given 07/27/2023 6:29 PM CDT 500 mg methocarbamol (ROBAXIN) tablet 500-1,000 mg 500-1,000 mg, Oral, QID PRN, Muscle Spasms, Starting on Wed07/27/23 at 1443, Until Wed07/28/23 at 1817 metoclopramide (REGLAN) injection 5 mg 5 mg, Intravenous, Q6H PRN, Nausea, Vomiting, Starting on Wed07/27/23 at 1715, Until Wed07/28/23 at 1817, Give 1st line medications, then 2nd line, then 3rd line. Progress to next line if medication is ineffective after 15 minutes, or has been previously ineffective, or if a medication for a line is not ordered. May use medication from any line if patient preference indicates. If third line agent is ineffective, call Practitioner. If unable to give IV medications contact Practitioner. Aromatherapy may be used at any time as adjunct therapy. 1st Line - ondansetron 2nd Line -prochlorperazine 3rd Line - metoclopramide ondansetron (ZOFRAN) injection 4 mg 4 mg, Intravenous, Q8H PRN, Nausea, Vomiting, Starting on Wed07/27/23 at 1715, Until Wed07/28/23 at 1817, Give 1st line medications, then 2nd line, then 3rd line. Progress to next line if medication is ineffective after 15 minutes, or has been previously ineffective, or if a medication for a line is not ordered. May use medication from any line if patient preference indicates. If third line agent is ineffective, call Practitioner. If unable to give IV medications contact Practitioner. Aromatherapy may be used at any time as adjunct therapy. 1st Line - ondansetron 2nd Line -prochlorperazine 3rd Line - metoclopramide oxyCODONE (ROXICODONE) immediate release tablet 5-10 mg 5-10 mg, Oral, Q4H PRN, Pain, Starting on Wed07/27/23 at 1715, Until Wed07/28/23 at 1344, Give PO opioid if able to take PO and pain not well controlled with other medications or interventions. Given 07/28/2023 6:52 AM CDT 10 mg Given 07/27/2023 6:29 PM CDT 10 mg oxyCODONE (ROXICODONE) immediate release tablet 5-10 mg 5-10 mg, Oral, ONCE PRN, Pain, Starting on Wed07/27/23 at 1341, Until Wed07/27/23 at 1348, For 1 dose, Once PRN for pain. PACU use only. If pain score is 1-5 in PACU - give 5mg (1 tablet). If pain score is 6-10 in PACU - give 10mg (2 tablets). If multiple oral opioids ordered, administer agents in order as directed by Practitioner., PACU (only) Given 07/27/2023 1:48 PM CDT 10 mg polyethylene glycol (MIRALAX) oral powder 17 g 17 g, Oral, DAILY PRN, Constipation, No stool in the last 2 days, Starting on Wed07/27/23 at 1714, Until Wed07/28/23 at 1817, Cumulative bowel medication orders. If no stool in last day start Senna-S BID PRN no stool, if no stool in last 2 days add Miralax DAILY PRN no stool, if no stool in last 3 days add bisacodyl suppository DAILY PRN until patient stools. When patient stools stop giving PRN meds and continue monitoring for bowel activity. When no stools X 1 day, begin regimen again until patient stools., Post-op prochlorperazine (COMPAZINE) injection 10 mg 10 mg, Intravenous, Q6H PRN, Nausea, Vomiting, Starting on Wed07/27/23 at 1715, Until Wed07/28/23 at 1817, Give 1st line medications, then 2nd line, then 3rd line. Progress to next line if medication is ineffective after 15 minutes, or has been previously ineffective, or if a medication for a line is not ordered. May use medication from any line if patient preference indicates. If third line agent is ineffective, call Practitioner. If unable to give IV medications contact Practitioner. Aromatherapy may be used at any time as adjunct therapy. 1st Line - ondansetron 2nd Line -prochlorperazine 3rd Line - metoclopramide sennosides-docusate sodium (SENOKOT S) 8.6-50 MG per tablet 1 Tablet 1 Tablet, Oral, BID, First dose on Wed07/27/23 at 2000, Until Discontinued, as laxative/stimulant, stool-softening agent, Post-op Given 07/28/2023 8:14 AM CDT 1 Tablet Given 07/27/2023 7:22 PM CDT 1 Tablet sennosides-docusate sodium (SENOKOT S) 8.6-50 MG per tablet 2 Tablet 2 Tablet, Oral, BID PRN, Constipation, No stool in the last day, Starting on Wed07/27/23 at 1714, Until Wed07/28/23 at 1817, Cumulative bowel medication orders. If no stool in last day start Senna-S BID PRN no stool, if no stool in last 2 days add Miralax DAILY PRN no stool, if no stool in last 3 days add bisacodyl suppository DAILY PRN until patient stools. When patient stools stop giving PRN meds and continue monitoring for bowel activity. When no stools X 1 day, begin regimen again until patient stools., Post-op sodium chloride 0.9% infusion Intravenous, at 100 mL/hr, CONTINUOUS, Starting on Wed07/27/23 at 1745, Saline lock pod1 if adequate PO intake and VSS Started 07/27/2023 7:47 PM CDT 100 mL/hr documented in this encounter Active and Recently Administered Medications Times are shown in CDT. Scheduled Medication Order 07/26/2023 07/27/2023 07/28/2023 acetaminophen (TYLENOL) tablet 1,000 mg 1,000 mg, Oral, TID, First dose on Wed07/27/23 at 2000, Until Discontinued 192 (Given - Provider: Niraj Dooley RN) 0816 (Given - Provider: Aniyah Rodriguez, ERNA)1420 (Given - Provider: Aniyah Rodriguez, ERNA) aspirin tablet 325 mg 325 mg, Oral, DAILY, First dose on Wed07/28/23 at 0800, Until Discontinued 0816 (Given - Provid er: Aniyah Rodriguez RN) buprenorphine-naloxone (SUBOXONE) 2-0.5 MG per film 2 Film 2 Film, Sublingual, BID, First dose on Wed07/29/23 at 0800, Until Discontinued, Do not cut, chew, or swallow film. For sublingual administration: Place film under the tongue close to the base on the left or right side until the film completely dissolves. If two films are needed for a single dose, place the second film under the tongue on the opposite side from the first film in a manner to minimize overlapping as much as possible. Avoid eating or drinking until film dissolves. Once film is completely dissolved, swish a sip of water around teeth and gums and swallow to avoid damage to these areas; wait at least 1 hour after administration to brush teeth. For buccal administration: Place one film on the inside of the right or left cheek. If more than one film is needed, the additional film should be placed on the inside of the opposite cheek. Keep the film on the inside of the cheek until completely dissolved. Once film is completely dissolved, swish a sip of water around teeth and gums and swallow to avoid damage to these areas; wait at least 1 hour after administration to brush teeth. buprenorphine-naloxone (SUBOXONE) 8-2 MG per film 1 Film (CANCELED) 1 Film, Sublingual, DAILY, First dose on Wed07/28/23 at 0800, Until Discontinued, Do not cut, chew, or swallow film. For sublingual administration: Place film under the tongue close to the base on the left or right side until the film completely dissolves. If two films are needed for a single dose, place the second film under the tongue on the opposite side from the first film in a manner to minimize overlapping as much as possible. Avoid eating or drinking until film dissolves. Once film is completely dissolved, swish a sip of water around teeth and gums and swallow to avoid damage to these areas; wait at least 1 hour after administration to brush teeth. For buccal administration: Place one film on the inside of the right or left cheek. If more than one film is needed, the additional film should be placed on the inside of the opposite cheek. Keep the film on the inside of the cheek until completely dissolved. Once film is completely dissolved, swish a sip of water around teeth and gums and swallow to avoid damage to these areas; wait at least 1 hour after administration to brush teeth. 1102 (Given - Provid er: Aniyah Rodriguez RN - Comment: pt requested to hold med due to other pain meds) ceFAZolin (ANCEF) 1 g in sodium chloride 0.9 % 50 mL IVPB ADS (COMPLETED) 1 g, Intravenous, Administer over 30 Minutes, Q8H (NON-STND), First dose on Wed07/27/23 at 2000, For 2 doses, Give x 24 hours, if first dose given pre-op, continue X 2 more doses for total 24h therapy Give first post-op dose 8 hours after previous dose. 2026 (Started - Provider: Niraj Dooley RN)2111 (Infused - Provider: Niraj Dooley RN) 336 (Started - Provider: Jimmie Quinones, ERNA)041 (Infused - Provider: Jimmie Quinones, ERNA) ceFAZolin (ANCEF) 2 g in sodium chloride 0.9 % 50 mL IVPB ADS (COMPLETED) 2 g, Intravenous, Administer over 30 Minutes, ONCE (NON-SCHEDULED), Starting on Wed07/27/23 at 0827, For 1 dose, For patient weight less than or equal to 119 kg PRE-OP, Pre-op 0954 (Started - Provider: Karlene Vaughn APRN, [employer]) enoxaparin (LOVENOX) prefilled syringe 30 mg (CANCELED) 30 mg, Subcutaneous, BID, First dose on Wed07/27/23 at 2000, Last dose on Wed08/10/23 at 0800, For 28 doses, For VTE/DVT prophylaxis HIGH ALERT medication 2026 (Given - Provider: Niraj Dooley RN) gabapentin (NEURONTIN) capsule 800 mg 800 mg, Oral, TID, First dose on Wed07/27/23 at 1999, Until Discontinued 1921 (Given - Provider: Niraj Dooley RN) 0814 (Given - Provider: Aniyah Rodriguez, ERNA)1420 (Given - Provider: Aniyah Rodriguez, ERNA) HYDROmorphone (DILAUDID) injection 1 mg (COMPLETED) 1 mg, Intravenous, ONCE, On Wed07/27/23 at 1415, For 1 dose 1355 (Given - Provider: Libia Perez, ERNA) hydrOXYzine pamoate (VISTARIL) capsule 50 mg (COMPLETED) 50 mg, Oral, ONCE, On Wed07/27/23 at 1400, For 1 dose 1348 (Given - Provider: Libia Perez RN) sennosides-docusate sodium (SENOKOT S) 8.6-50 MG per tablet 1 Tablet 1 Tablet, Oral, BID, First dose on Wed07/27/23 at 2000, Until Discontinued, as laxative/stimulant, stool-softening agent, Post-op 1922 (Given - Provider: Niraj Dooley RN) 0814 (Given - Provider: Aniyah Rodriguez RN) tranexamic acid (CYKLOKAPRON) 1000 mg in sodium chloride 0.9% (10 mg/mL) 100 mL IVPB premix (COMPLETED)(Linked Group 1) 1,000 mg, Intravenous, ONCE, On Wed07/27/23 at 0845, For 1 dose, Administer once at incision and once at start of closure., Pre-op 0950 (Given - Provider: Karlene Vaughn APRN, EDWIGE) tranexamic acid (CYKLOKAPRON) 1000 mg in sodium chloride 0.9% (10 mg/mL) 100 mL IVPB premix (COMPLETED)(Linked Group 1) 1,000 mg, Intravenous, ONCE, On Wed07/27/23 at 0845, For 1 dose, Administer once at incision and once at start of closure., Pre-op 1246 (Given - Provider: Karlene Vaughn APRN, EDWIGE) Continuous Medication Order 07/26/2023 07/27/2023 07/28/2023 lactated ringers infusion (CANCELED) Intravenous, at 30 mL/hr, CONTINUOUS, Starting on Wed07/27/23 at 0845, Pre-op 0858 (Started - Provider: José Miguel Vega RN)0928 (Stopped - Provider: Karlene Vaughn APRN, EDWIGE - Comment: Switch to gravity)0929 (Restarted - Provider: Karlene Vaughn APRN, SHIP WIRER)1136 (Started - Provider: Karlene Vaughn APRN, SHIP WIRER)1320 (Infused - Provider: Karlene Vaughn APRN, EDWIGE) sodium chloride 0.9% infusion Intravenous, at 100 mL/hr, CONTINUOUS, Starting on Wed07/27/23 at 1745, Saline lock pod1 if adequate PO intake and VSS 1947 (Started - Provider: Lamar Rosas RN) PRN Medication Order 07/26/2023 07/27/2023 07/28/2023 benzocaine-menthol (Chloraseptic) lozenge 1 Lozenge 1 Lozenge, Oral, Q2H PRN, Throat Pain, Starting on Wed07/27/23 at 1715, Until Wed07/28/23 at 1817 bisacodyl (DULCOLAX) rectal suppository 10 mg(Linked Group 2) 10 mg, Rectal, DAILY PRN, Constipation, No stool in the last 3 days, Starting on Wed07/27/23 at 1714, Until Wed07/28/23 at 1817, Cumulative bowel medication orders. If no stool in last day start Senna-S BID PRN no stool, if no stool in last 2 days add Miralax DAILY PRN no stool, if no stool in last 3 days add bisacodyl suppository DAILY PRN until patient stools. When patient stools stop giving PRN meds and continue monitoring for bowel activity. When no stools X 1 day, begin regimen again until patient stools., Post-op calcium carbonate (TUMS) chewable tablet 500-1,000 mg 500-1,000 mg, Oral, QID PRN, Heartburn, Dyspepsia, Starting on Wed07/27/23 at 1715, Until Wed07/28/23 at 1817, Each tablet provides 200 mg elemental calcium dextrose (D50) IVPB 25 g(Linked Group 3) 25 g, Intravenous, Q15MIN PRN, Hypoglycemia, Per Adult Hypoglycemia Treatment Protocol, Starting on Wed07/27/23 at 1715, Per Hypoglycemic episode: Give 25g IV push, recheck POCT glucose in 15 minutes, if result less than 70mg/dL, may repeat. After 2 doses notify Practitioner. May continue to treat while waiting for call back. fentaNYL (SUBLIMAZE) injection 25-50 mcg (CANCELED) 25-50 mcg, Intravenous, [id number], Pain, Starting on Wed07/27/23 at 1248, Until Wed07/27/23 at 1705, 25 mcg IV q5min prn based on the patient's pain scale rating for mild to moderate pain (1 to 5). 50 mcg IV q5min prn based on the patient's pain scale rating for moderate to severe pain (6 to 10). Total PACU fentanyl dose not to exceed 200 mcg. Use fentanyl initially for a short acting agent for treatment of acute post operative pain. May use in conjuction with a longer acting agent for optimal pain control. Respiratory rate must be greater than 10 to administer medications., PACU (only) 1450 (Given - Provider: Khushboo Lux, ERNA)1500 (Given - Provider: Khushboo Lux RN)1515 (Given - Provider: Khushboo Lux RN) glucagon rDNA (diagnostic) (GLUCAGEN) injection 1 mg(Linked Group 3) 1 mg, Intramuscular, Q15MIN PRN, Hypoglycemia, Per Adult Hypoglycemia Treatment Protocol, Starting on Wed07/27/23 at 1715, Until Wed07/28/23 at 1817, Per Hypoglycemic episode: Give 1mg IM, turn patient on side to prevent aspiration if vomits. If appropriate, establish IV access STAT. Recheck POCT glucose in 15 minutes, if result less than 70mg/dL and still no IV access, may repeat 1mg IM x 1. Recheck POCT glucose in 15 minutes, if result is less than 70mg/dL notify Practitioner. glucose (GLUTOSE) 40 % oral gel 15 g of glucose(Linked Group 3) 15 g of glucose, Oral, Q15MIN PRN, Hypoglycemia, Per Adult Hypoglycemia Treatment Protocol, Starting on Wed07/27/23 at 1715, Until Wed07/28/23 at 1817, Give 15g orally, recheck POCT glucose in 15 minutes, if result less than 70mg/dL, may repeat. After 2 doses notify Practitioner. May continue to treat while waiting for call back. 37.5g tube delivers 15g of glucose HYDROmorphone (DILAUDID) injection 0.5 mg (CANCELED) 0.5 mg, Intravenous, Q10MIN PRN, Pain, Starting on Wed07/27/23 at 1338, Until Wed07/28/23 at 1047, For 12 doses, PACU USE ONLY Total PACU hydromorphone dose not to exceed 6 mg per hour 1406 (Given - Provider: Libia Perez RN)1417 (Given - Provider: Libia Perez RN)1428 (Given - Provider: Libia Perez RN)1438 (Given - Provider: Libia Perez RN)1450 (Given - Provider: Khushboo Lux, ERNA)1500 (Given - Provider: Khushboo Lux, ERNA)1515 (Given - Provider: Khushboo Lux, ERNA)1535 (Given - Provider: Libia Perez RN)1600 (Given - Provider: Libia Perez RN)1630 (Given - Provider: Libia Perez RN) HYDROmorphone (DILAUDID) tablet 4-6 mg 4-6 mg, Oral, Q3H PRN, Pain, Starting on Wed07/27/23 at 1442, Until Wed07/28/23 at 1817 2037 (Given - Provider: Niraj Dooley RN) 0815 (Given - Provider: Aniyah Rodriguez RN)1526 (Given - Provider: Aniyah Rodriguez RN) ketamine (KETALAR) injection 5-10 mg 5-10 mg, Intravenous, Q4H PRN, Pain, Starting on Wed07/27/23 at 1443, Until Wed07/28/23 at 1817, Ketamine 5-10 mg IV given over 2-3 minutes Q4H PRN. 2216 (Given - Provider: Niraj Dooley RN) 0445 (Given - Provider: Jimmie Quinones, ERNA) methocarbamol (ROBAXIN) tablet 500 mg (CANCELED) 500 mg, Oral, Q6H PRN, Muscle Spasms, Starting on Wed07/27/23 at 1715, Until Wed07/28/23 at 1344 1829 (Given - Provider: Elisabet Fofana) 0652 (Given - Provider: Jimmie Quinones, ERNA) methocarbamol (ROBAXIN) tablet 500-1,000 mg 500-1,000 mg, Oral, QID PRN, Muscle Spasms, Starting on Wed07/27/23 at 1443, Until Wed07/28/23 at 1817 metoclopramide (REGLAN) injection 5 mg(Linked Group 4) 5 mg, Intravenous, Q6H PRN, Nausea, Vomiting, Starting on Wed07/27/23 at 1715, Until Wed07/28/23 at 1817, Give 1st line medications, then 2nd line, then 3rd line. Progress to next line if medication is ineffective after 15 minutes, or has been previously ineffective, or if a medication for a line is not ordered. May use medication from any line if patient preference indicates. If third line agent is ineffective, call Practitioner. If unable to give IV medications contact Practitioner. Aromatherapy may be used at any time as adjunct therapy. 1st Line - ondansetron 2nd Line -prochlorperazine 3rd Line - metoclopramide naloxone (NARCAN) injection 0.2 mg 0.2 mg, Intravenous, PRN PER PARAMETERS, Opioid Reversal, Excessive Sedation/Respiratory Rate less than 8 breaths per minute.? Notify Practitioner if given., Starting on Wed07/27/23 at 1715, Until Wed07/28/23 at 1817, Excessive Sedation/Respiratory Rate less than 8 breaths per minute.? Notify Practitioner if given. ondansetron (ZOFRAN) injection 4 mg(Linked Group 4) 4 mg, Intravenous, Q8H PRN, Nausea, Vomiting, Starting on Wed07/27/23 at 1715, Until Wed07/28/23 at 1817, Give 1st line medications, then 2nd line, then 3rd line. Progress to next line if medication is ineffective after 15 minutes, or has been previously ineffective, or if a medication for a line is not ordered. May use medication from any line if patient preference indicates. If third line agent is ineffective, call Practitioner. If unable to give IV medications contact Practitioner. Aromatherapy may be used at any time as adjunct therapy. 1st Line - ondansetron 2nd Line -prochlorperazine 3rd Line - metoclopramide oxyCODONE (ROXICODONE) immediate release tablet 5-10 mg (CANCELED) 5-10 mg, Oral, Q4H PRN, Pain, Starting on Wed07/27/23 at 1715, Until Wed07/28/23 at 1344, Give PO opioid if able to take PO and pain not well controlled with other medications or interventions. 182 (Given - Provider: Elisabet Fofana) 0274 (Given - Provider: Jimmie Quinones RN) oxyCODONE (ROXICODONE) immediate release tablet 5-10 mg (COMPLETED) 5-10 mg, Oral, ONCE PRN, Pain, Starting on Wed07/27/23 at 1341, Until Discontinued, For 1 dose, Once PRN for pain. PACU use only. If pain score is 1-5 in PACU - give 5mg (1 tablet). If pain score is 6-10 in PACU - give 10mg (2 tablets). If multiple oral opioids ordered, administer agents in order as directed by Practitioner., PACU (only) 1348 (Given - Provider: Libia Perez, RN) polyethylene glycol (MIRALAX) oral powder 17 g(Linked Group 2) 17 g, Oral, DAILY PRN, Constipation, No stool in the last 2 days, Starting on Wed07/27/23 at 1714, Until Wed07/28/23 at 1817, Cumulative bowel medication orders. If no stool in last day start Senna-S BID PRN no stool, if no stool in last 2 days add Miralax DAILY PRN no stool, if no stool in last 3 days add bisacodyl suppository DAILY PRN until patient stools. When patient stools stop giving PRN meds and continue monitoring for bowel activity. When no stools X 1 day, begin regimen again until patient stools., Post-op prochlorperazine (COMPAZINE) injection 10 mg(Linked Group 4) 10 mg, Intravenous, Q6H PRN, Nausea, Vomiting, Starting on Wed07/27/23 at 1715, Until Wed07/28/23 at 1817, Give 1st line medications, then 2nd line, then 3rd line. Progress to next line if medication is ineffective after 15 minutes, or has been previously ineffective, or if a medication for a line is not ordered. May use medication from any line if patient preference indicates. If third line agent is ineffective, call Practitioner. If unable to give IV medications contact Practitioner. Aromatherapy may be used at any time as adjunct therapy. 1st Line - ondansetron 2nd Line -prochlorperazine 3rd Line - metoclopramide sennosides-docusate sodium (SENOKOT S) 8.6-50 MG per tablet 2 Tablet(Linked Group 2) 2 Tablet, Oral, BID PRN, Constipation, No stool in the last day, Starting on Wed07/27/23 at 1714, Until Wed07/28/23 at 1817, Cumulative bowel medication orders. If no stool in last day start Senna-S BID PRN no stool, if no stool in last 2 days add Miralax DAILY PRN no stool, if no stool in last 3 days add bisacodyl suppository DAILY PRN until patient stools. When patient stools stop giving PRN meds and continue monitoring for bowel activity. When no stools X 1 day, begin regimen again until patient stools., Post-op traZODone (DESYREL) tablet 50 mg 50 mg, Oral, HS PRN, Sleep, Starting on Wed07/27/23 at 1724, Until Wed07/28/23 at 1817, Indications: Insomnia vancomycin (VANCOCIN) injection (CANCELED) ONCE PRN, Starting on Wed07/27/23 at 1255, Intra-op 1255 (Given - Provider: Alicia Lopez MD) Linked Groups Order Group 1: tranexamic acid (CYKLOKAPRON) 1000 mg in sodium chloride 0.9% (10 mg/mL) 100 mL IVPB premix (COMPLETED)Jump to med 1,000 mg, Intravenous, ONCE, On Wed07/27/23 at 0845, For 1 dose
Administer once at incision and once at start of closure.
Pre-op Followed by tranexamic acid (CYKLOKAPRON) 1000 mg in sodium chloride 0.9% (10 mg/mL) 100 mL IVPB premix (COMPLETED)Jump to med 1,000 mg, Intravenous, ONCE, On Wed07/27/23 at 0845, For 1 dose
Administer once at incision and once at start of closure.
Pre-op Group 2: sennosides-docusate sodium (SENOKOT S) 8.6-50 MG per tablet 2 TabletJump to med 2 Tablet, Oral, BID PRN, Constipation, No stool in the last day, Starting on Wed07/27/23 at 1714, Until Wed07/28/23 at 1817
Cumulative bowel medication orders. If no stool in last day start Senna-S BID PRN no stool, if no stool in last 2 days add Miralax DAILY PRN no stool, if no stool in last 3 days add bisacodyl suppository DAILY PRN until patient stools. When patient stools stop giving PRN meds and continue monitoring for bowel activity. When no stools X 1 day, begin regimen again until patient stools.
Post-op Or polyethylene glycol (MIRALAX) oral powder 17 gJump to med 17 g, Oral, DAILY PRN, Constipation, No stool in the last 2 days, Starting on Wed07/27/23 at 1714, Until Wed07/28/23 at 1817
Cumulative bowel medication orders. If no stool in last day start Senna-S BID PRN no stool, if no stool in last 2 days add Miralax DAILY PRN no stool, if no stool in last 3 days add bisacodyl suppository DAILY PRN until patient stools. When patient stools stop giving PRN meds and continue monitoring for bowel activity. When no stools X 1 day, begin regimen again until patient stools.
Post-op Or bisacodyl (DULCOLAX) rectal suppository 10 mgJump to med 10 mg, Rectal, DAILY PRN, Constipation, No stool in the last 3 days, Starting on Wed07/27/23 at 1714, Until Wed07/28/23 at 1817
Cumulative bowel medication orders. If no stool in last day start Senna-S BID PRN no stool, if no stool in last 2 days add Miralax DAILY PRN no stool, if no stool in last 3 days add bisacodyl suppository DAILY PRN until patient stools. When patient stools stop giving PRN meds and continue monitoring for bowel activity. When no stools X 1 day, begin regimen again until patient stools.
Post-op Group 3: glucose (GLUTOSE) 40 % oral gel 15 g of glucoseJump to med 15 g of glucose, Oral, Q15MIN PRN, Hypoglycemia, Per Adult Hypoglycemia Treatment Protocol, Starting on Wed07/27/23 at 1715, Until Wed07/28/23 at 1817
Give 15g orally, recheck POCT glucose in 15 minutes, if result less than 70mg/dL, may repeat. After 2 doses notify Practitioner. May continue to treat while waiting for call back. 37.5g tube delivers 15g of glucose
Or dextrose (D50) IVPB 25 gJump to med 25 g, Intravenous, Q15MIN PRN, Hypoglycemia, Per Adult Hypoglycemia Treatment Protocol, Starting on Wed07/27/23 at 1715
Per Hypoglycemic episode: Give 25g IV push, recheck POCT glucose in 15 minutes, if result less than 70mg/dL, may repeat. After 2 doses notify Practitioner. May continue to treat while waiting for call back.
Or glucagon rDNA (diagnostic) (GLUCAGEN) injection 1 mgJump to med 1 mg, Intramuscular, Q15MIN PRN, Hypoglycemia, Per Adult Hypoglycemia Treatment Protocol, Starting on Wed07/27/23 at 1715, Until Wed07/28/23 at 1817
Per Hypoglycemic episode: Give 1mg IM, turn patient on side to prevent aspiration if vomits. If appropriate, establish IV access STAT. Recheck POCT glucose in 15 minutes, if result less than 70mg/dL and still no IV access, may repeat 1mg IM x 1. Recheck POCT glucose in 15 minutes, if result is less than 70mg/dL notify Practitioner.
Group 4: ondansetron (ZOFRAN) injection 4 mgJump to med 4 mg, Intravenous, Q8H PRN, Nausea, Vomiting, Starting on Wed07/27/23 at 1715, Until Wed07/28/23 at 1817
Give 1st line medications, then 2nd line, then 3rd line. Progress to next line if medication is ineffective after 15 minutes, or has been previously ineffective, or if a medication for a line is not ordered. May use medication from any line if patient preference indicates. If third line agent is ineffective, call Practitioner. If unable to give IV medications contact Practitioner. Aromatherapy may be used at any time as adjunct therapy. 1st Line - ondansetron 2nd Line -prochlorperazine 3rd Line - metoclopramide
And prochlorperazine (COMPAZINE) injection 10 mgJump to med 10 mg, Intravenous, Q6H PRN, Nausea, Vomiting, Starting on Wed07/27/23 at 1715, Until 07/28/23 at 1817
Give 1st line medications, then 2nd line, then 3rd line. Progress to next line if medication is ineffective after 15 minutes, or has been previously ineffective, or if a medication for a line is not ordered. May use medication from any line if patient preference indicates. If third line agent is ineffective, call Practitioner. If unable to give IV medications contact Practitioner. Aromatherapy may be used at any time as adjunct therapy. 1st Line - ondansetron 2nd Line -prochlorperazine 3rd Line - metoclopramide
And metoclopramide (REGLAN) injection 5 mgJump to med 5 mg, Intravenous, Q6H PRN, Nausea, Vomiting, Starting on Wed07/27/23 at 1715, Until 07/28/23 at 1817
Give 1st line medications, then 2nd line, then 3rd line. Progress to next line if medication is ineffective after 15 minutes, or has been previously ineffective, or if a medication for a line is not ordered. May use medication from any line if patient preference indicates. If third line agent is ineffective, call Practitioner. If unable to give IV medications contact Practitioner. Aromatherapy may be used at any time as adjunct therapy. 1st Line - ondansetron 2nd Line -prochlorperazine 3rd Line - metoclopramide
And Aromatherapy - Q-easy (CANCELED) Routine, Q8H PRN, Starting on Wed07/27/23 at 1715, Until Specified
Aromatherapy may be used at any time as adjunct therapy as needed for Nausea/Vomiting. documented in this encounter Care Teams Director Epidemiology Relationship Specialty Start Date End Date Found, No Pcp, [address] [place] [address] PCP - General 05/25/23 documented as of this encounter
--- OUTSIDE RECORDS SUMMARY | 2023-10-28 09:36 | XMS_ITS | Encounter Summary ---
Author Name Unknown Organization [facility] Address [address] [place] [address] Care Team Providers Care Clinical Project Manager Name Role Phone Found, No Pcp MD Primary Care Provider Unavailab le Reason for Visit * Reason Comments INFECTION Encounter Details Date Type Department Care Team Description 09/23/2023 Telephone [facility] [address] [place] [address]. [place], [place] [id number] Alicia Lopez MD [address] [place] [address] [phone] INFECTION Social History Tobacco Use Types Packs/Day Years [...] of this encounter Nursing Notes * Margaret Quijano, RN - 09/24/2023 7:[address] Lopez: Looks like the ER did not find any deep infection. Do you mind calling him and start him on 500 mg Keflex qid x 10 days? I am not sure which pharmacy he prefers. I can see him back in early October thank you. Spoke with patient regarding note below and relayed the information from Dr. Lopez. Patient verbalized understanding and Rx has been sent. Pt asks if he should be placing any triple antbx cream on the area and covering with a band aid? He was informed to avoid any creams/ointments but ok to cover with a band aid or gauze pad. Also encouraged him to contact us with any worsening s/s. He does confirm he is still not feeling well today. He was transferred to schedule f/u appt. Margaret Quijano RN 09/24/2023, 8:13 AM RICT CUSTOMS DIRECTOR * Nubia Chambers RN - 09/23/2023 1:28 PM CST Spoke with pt. He states the 2 scabs on the bottom of his incision right below the knee are gettingalittle bigger and are not healing. His incision continues to be red and he thinks its getter darker. Has watery yellowish drainage. No odor. No swelling, Is tender to the touch. Has been ill feelingrecently feels feverish and has chills. Nauseated at times. Has not taken temperature. Everytime heshowers the scabs fall off. Pt is able to send photos. Sent link to his ITYZ. Will await photos.Nubia Partida RN, 09/23/23 1:30 PM RICT CUSTOMS DIRECTOR documented in this encounter Plan of Treatment Upcoming Encounters Date Type Department Care Team Description 11/29/2023 1:20 PM DISTRICT CUSTOMS DIRECTOR Appointment [facility] [address] [place] [address]. [place] [address] Alicia Lopez MD [address] [place] [address] documented as of this encounter Visit Diagnoses Not on filedocumented in this encounter Care Teams Clinical Project Manager Relationship Specialty Start Date End Date Found, No PcpMD [address] [facility] [place] [address] PCP - General 05/25/23 documented as of this encounter
--- OUTSIDE RECORDS SUMMARY | 2023-10-28 09:36 | XMS_ITS | Encounter Summary ---
Author Name Unknown Organization [facility] Address [address] [place] [address] Care Team Providers Care Wellness Assistant Name Role Phone Found, No Pcp MD Primary Care Provider Unavailab le Reason for Visit * Reason Comments APPOINTMENT REQUEST Encounter Details Date Type Department Care Team Description 08/30/2023 Telephone [facility] [address] [facility] [address] [place] [address]. [place], [place] [id number] Alicia Lopez MD [address] [place] [address] [phone] APPOINTMENT REQUEST Social History Tobacco Use Types Packs/Day Years [...] as of this encounter Nursing Notes * Nikia Pritchett - 08/31/2023 8:38 AM CST Patient scheduled with Dr Lopez 09/06 at 10:40. Nikia Pritchett 08/31/2023, 8:38 AM ET FILLER * Susan Nails ATC - 08/31/2023 8:31 AM CST Okay to OB a follow up slot for the patient to see either Mariposa Gusman CNP, APRN or Dr. Lopez on 09/06/23 or 09/13/23. Susan Nails ATC 08/31/2023, 8:31 AM ET FILLER * Nikia Pritchett - 08/30/2023 3:41 PM CST GENERAL QUESTIONS How may we help you today? Patient needs a post op with XR with Dr Lopez, but the next opening is not until 09/20/23. Please advise on when we can get patient scheduled, and confirm with us so we can call patient back. Describe your symptoms/concerns: Post Op When did the issue start: DOS-07/27/23 Right ORIF Tibial Plateau Fracture Have you been seen for this recently?: Yes: Date: 08/12/23 Provider: Mariposa Gusman If we are unable to reach you can we leave a detailed message on your voicemail? Yes If we are unable to reach you can we send you a message in [facility]? [Campus Safety Officer/Manager Management: Relay to patient; We make every effort to get back to you sameday, however it may take 1-2 business days depending on the nature of the communication.] ET FILLER documented in this encounter Plan of Treatment Upcoming Encounters Date Type Department Care Team Description 11/29/2023 1:20 PM BASKET FILLER Appointment [facility] [address] [place] [address]. [place] [address] Alicia Lopez MD [address] [place] [address] documented as of this encounter Visit Diagnoses Not on filedocumented in this encounter Care Teams Wellness Assistant Relationship Specialty Start Date End Date Found, No PcpMD [address] [place] [address] PCP - General 05/25/23 documented as of this encounter
--- OUTSIDE RECORDS SUMMARY | 2023-10-28 09:36 | XMS_ITS | Encounter Summary ---
Author Name Unknown Organization [facility] Address [address] [place] [address] Care Team Providers Care Board Member Name Role Phone Found, No Pcp MD Primary Care Provider Unavailab le Reason for Referral * Procedure/Equipment (Routine) - Incomplete Specialty Diagnoses / Procedures Referred By Contac t Referred To Contact Diagnoses Tibial plateau fracture, right, closed, with nonunion, subsequent encounter Procedures XR Femur Lt 2 Views Alicia Lopez MD [address] [place] [address] Referral ID Status Reason Start Date Expiration Date V isits Requested Visits Authorized [id number] Incomplete 09/06/2023 12/05/2024 1 1 CORRECTIONS * Procedure/Equipment (Routine) - Incomplete Specialty Diagnoses / Procedures Referred By Contac t Referred To Contact Diagnoses Tibial plateau fracture, right, closed, with nonunion, subsequent encounter Procedures XR Knee Rt 2 Views Alicia Lopez MD [address] [place] [address] Referral ID Status Reason Start Date Expiration Date V isits Requested Visits Authorized [id number] Incomplete 09/06/2023 12/05/2024 1 1 CORRECTIONS Reason for Visit * Reason Comments POST-OP,EXAM Encounter Details Date Type Department Care Team Description 09/06/2023 10:40 AM RN CORRECTIONS Office Visit [facility]ty [facility] [address] [place] [address]. [place] [address] Alicia Lopez MD [address] [place] [address] [place] [phone] Tibial plateau fracture, right, closed, with nonunion, subsequent encounter (Primary Dx) Social History Tobacco Use Types Packs/Day Years [...] encounter Patient Instructions * Patient Instructions* Johann Stuart, BASILIO - 09/06/2023 10:40 AM RN CORRECTIONS ORTHOPEDICS DEPARTMENT PHONE NUMBER: [phone] Reason for today's visit: POST-OP,EXAM Treatment plan: Activity as tolerated Follow up appointments: You will follow up with Alicia Lopez MD in 8 week(s). X-Rays: You will have Left Femur x-rays taken with your next orthopedics appointment. Please [id number] minutes early to have imaging done prior to seeing your provider. We will see you again on: [] no x-rays [x] w/ x-ray arrive at: Please come to this same location, [address] [place] [address]. [facility] Floor Appt notes: DOS: 07/27/23 ORIF R tib plateau; f/u with 2V R knee and 2v L femur xr If you have an urgent question or concern for your provider and it is after 5pm, on a weekend, or aholiday you can call the nurse care line at [phone]. If you need information about the cost of care you received today, or about an upcoming visit or surgery please call the cost of care line at [phone]. If you need forms completed for work, short term/nursing home disability, FMLA, or school: Please bring any forms to our clinic at [address] [place] [address] as soon as you receive them. It is recommended to bring these forms to the clinic prior to surgery and not on the to the hospital on the day of surgery. You may give these forms to our 3rd floor check-in staff You can also fax them to us at [facility], Attention: Airline Counter Agent, Fax- [phone] Be sure to complete the patient portion [...] will need to sign a form authorizing [facility] to release this information. For additional questions regarding forms, or if you need a letter for work/school, please contact the clinic at [phone] If you have any questions about your visit, your symptoms, your medication, your test results or itis not clear what your diagnosis or treatment plan is please contact us at [phone] or send us a secure message via [employer]. You may receive a survey in the mail regarding your visit today. Your feedback is very important tous, please take a moment to complete the survey which is completely anonymous. If you would like tospeak to someone specifically, you may contact the clinic at [phone] and your call will be directed to someone on our leadership team. Thank you for choosing Alicia Lopez MD and [facility]. CORRECTIONS documented in this encounter Progress Notes * Alicia Lopez MD - 09/06/2023 10:40 AM CST Zay Dick is a 38 y.o. male who presents to clinic today for his follow-up status post revision ORIF R tibial plateau with bone graft and removal of loose lateral screw on 07/27/23. Approximately 6 weeks out from surgery. Feels he is doing overall well. Reports that he discontinued use of his crutches 1-2 weeks ago and has not noticed interval increase in pain of his RLE though he does note some increased pain in his left thigh- is curious if the distal screws might be contributing. Patient additionally notes some pain over his distal lateral femur. No knee pain but reports increase in pain with movement- particularly when using the stationary bike. Does not feel prominent hardware at this site. PHYSICAL EXAMINATION: Examination of the right lower extremity reveals intact incisions with good healing, well approximated edges. Patient is able to fire EHL FHL TA GS. Sensation is intact to light touch over the top and the bottom of the foot. Decreased sensation around incisions. Toes are warm and well perfused. LLE with below knee amputation. No palpable hardware over distal femur and incisions are well healed. IMAGING: Radiographs obtained today reviewed independently: interval consolidation of fracture site without evidence of hardware loosening or failure. Films of the left femur show fracture healing with intact hardware- no obvious loosening or backingout of distal screws appreciated. ASSESSMENT AND PLAN: Zay is 6 weeks status post revision ORIF R tibial plateau with bone graft and removal of loose lateral screw on 07/27/23, doing well. - Okay to progress to WBAT RLE, continue to work on knee ROM - Plan to continue use of bone stimulator and minimize tobacco use as much as possible to optimize bony healing (currently 1-2 ppd, down from 4 ppd) - Regarding pain over distal lateral femur, discussed if still symptomatic, could consider screw removal in the future to minimize pain from hardware - Follow up in 6-8 weeks with repeat right knee and left femur films, sooner as needed The patient was seen and evaluated with Dr Lopez. Adrianne Cook MD [facility] Orthopaedic Surgery, PGY2 09/06/23 11:28 AM I have seen and examined the patient, confirmed anguiano findings. I discussed the case with the resident, agree with assessment and plan as documented. Alicia Lopez MD CORRECTIONS documented in this encounter Plan of Treatment Upcoming Encounters Date Type Department Care Team Description 11/29/2023 1:20 PM RN CORRECTIONS Appointment [place] [address] [facility] [address] [place] [address]. [place] [address] Alicia Lopez MD [address] [place] [address] documented as of this encounter Procedures Procedure Name Priority Date/Time Associated Diagnosis Comments XR FEMUR LT 2 VIEWS Routine 09/06/2023 1 1:41 AM RN CORRECTIONS Tibial plateau fracture, right, closed, with nonunion, subsequent encounter documented in this encounter Results * XR Femur Lt 2 Views (09/06/2023 11:41 AM RN CORRECTIONS) Anatomical Region Laterality Modality Lower Extremity, Leg, Thigh Comp uted Radiography 09/06/2023 11:4 1 AM RN CORRECTIONS Narrative 09/07/2023 12:51 PM RN CORRECTIONS EXAM: XR FEMUR LT 2 VIEWS LOCATION: [place] [address] DATE: 09/06/2023 INDICATION: Fracture f/u, Displaced bicondylar fracture of right t COMPARISON: 05/10/2023 IMPRESSION: Locking intramedullary adair fixation of ??the distal femoral shaft fracture. Fracture lines less visible. Hardware unchanged. Procedure Note Aldair Mcgee MD - 09/07/2023 EXAM: XR FEMUR LT 2 VIEWS LOCATION: [place] [address] DATE: 09/06/2023 INDICATION: Fracture f/u, Displaced bicondylar fracture of right t COMPARISON: 05/10/2023 IMPRESSION: Locking intramedullary adair fixation of the distal femoralshaft fracture. Fracture lines less visible. Hardware unchanged. Alicia Lopez MD RAD GD * XR Knee Rt 2 Views (09/06/2023 11:15 AM RN CORRECTIONS) Anatomical Region Laterality Modality Lower Extremity, Knee Computed R adiography 09/06/2023 11:1 5 AM RN CORRECTIONS Narrative 09/06/2023 1:51 PM RN CORRECTIONS EXAM: XR KNEE RT 2 VIEWS LOCATION: [facility] [place] [address] DATE: 09/06/2023 INDICATION: ORIF right tibial plateau fracture, Displaced bicondylar fracture of right t COMPARISON: 07/27/2023 IMPRESSION: Side plate and screw fixation healing fracture proximal right tibia. Appropriate alignment. Hardware intact. Procedure Note Corey Valdez MD - 09/06/2023 EXAM: XR KNEE RT 2 VIEWS LOCATION: [facility] 435 DATE: 09/06/2023 INDICATION: ORIF right tibial plateau fracture, Displaced bicondylarfracture of right t COMPARISON: 07/27/2023 IMPRESSION: Side plate and screw fixation healing fracture proximal righttibia. Appropriate alignment. Hardware intact. Alicia Lopez MD RAD GD documented in this encounter Visit Diagnoses Diagnosis Tibial plateau fracture, right, closed, with nonunion, subsequent encounter- Primary Tibial plateau fracture, right, closed, with nonunion, subsequent encounter documented in this encounter Care Teams Board Member Relationship Specialty Start Date End Date Found, No Pcp, [address] [place] [address] PCP - General 05/25/23 documented as of this encounter
--- OUTSIDE RECORDS SUMMARY | 2023-10-28 09:36 | XMS_ITS | Encounter Summary ---
Author Name Unknown Organization [facility] Address [address] [place] [address] Care Team Providers Care Soils Analyst Name Role Phone Found, No Pcp MD Primary Care Provider Unavailab le Reason for Visit * Procedure/Equipment (Routine) - Incomplete Specialty Diagnoses / Procedures Referred By Contac t Referred To Contact Diagnoses Tibial plateau fracture, right, closed, with nonunion, subsequent encounter Procedures XR Femur Lt 2 Views Alicia Lopez MD [address] [place] [address] Referral ID Status Reason Start Date Expiration Date V isits Requested Visits Authorized [id number] Incomplete 09/06/2023 12/05/2024 1 1 Encounter Details Date Type Department Care Team Description 09/06/2023 11:25 AM MERCHANDISER Ancillary Procedure [facility] [address] [place] [address] Alicia Lopez MD [address] [place] [address] Social History Tobacco Use Types Packs/Day Years [...] Department Care Team Description 11/29/2023 1:20 PM MERCHANDISER Appointment [facility] [place] [facility] [address] [place] [address] [place] [address] Alicia Lopez MD [address] [place] [address] documented as of this encounter Procedures Procedure Name Priority Date/Time Associated Diagnosis Comments XR FEMUR LT 2 VIEWS Routine 09/06/2023 1 1:41 AM MERCHANDISER Tibial plateau fracture, right, closed, with nonunion, subsequent encounter documented in this encounter Results * XR Femur Lt 2 Views (09/06/2023 11:41 AM MERCHANDISER) Anatomical Region Laterality Modality Lower Extremity, Leg, Thigh Comp uted Radiography 09/06/2023 11:4 1 AM MERCHANDISER Narrative 09/07/2023 12:51 PM MERCHANDISER EXAM: XR FEMUR LT 2 VIEWS LOCATION: [place] [address] DATE: 09/06/2023 INDICATION: Fracture f/u, Displaced bicondylar fracture of right t COMPARISON: 05/10/2023 IMPRESSION: Locking intramedullary adair fixation of ??the distal femoral shaft fracture. Fracture lines less visible. Hardware unchanged. Procedure Note Aldair Mcgee MD - 09/07/2023 EXAM: XR FEMUR LT 2 VIEWS LOCATION: [place] [address] DATE: 09/06/2023 INDICATION: Fracture f/u, Displaced bicondylar fracture of right t COMPARISON: 05/10/2023 IMPRESSION: Locking intramedullary adair fixation of the distal femoralshaft fracture. Fracture lines less visible. Hardware unchanged. Alicia Lopez MD RAD GD documented in this encounter Visit Diagnoses Not on filedocumented in this encounter Care Teams Soils Analyst Relationship Specialty Start Date End Date Found, No Pcp, [address] [place] [address] PCP - General 05/25/23 documented as of this encounter
--- OUTSIDE RECORDS SUMMARY | 2023-10-28 09:36 | XMS_ITS | Encounter Summary ---
Author Name Unknown Organization [facility] Address [address] [place] [address] Care Team Providers Care Engineering Secretary Name Role Phone Found, No Pcp MD Primary Care Provider Unavailab le Reason for Visit * Procedure/Equipment (Routine) - Incomplete Specialty Diagnoses / Procedures Referred By Contac t Referred To Contact Diagnoses Tibial plateau fracture, right, closed, with nonunion, subsequent encounter Procedures XR Knee Rt 2 Views Alicia Lopez MD [address] [place] [address] Referral ID Status Reason Start Date Expiration Date V isits Requested Visits Authorized [id number] Incomplete 09/06/2023 12/05/2024 1 1 Encounter Details Date Type Department Care Team Description 09/06/2023 11:10 AM REVERSE UNIT OPERATOR Ancillary Procedure [facility] [address] [place] [address]. [place] [address] Alicia Lopez MD [address] [place] [address] Tibial plateau fracture, right, closed, with nonunion, [...] Department Care Team Description 11/29/2023 1:20 PM REVERSE UNIT OPERATOR Appointment [place] [address] [facility] [address] [facility] [place] [address] Alicia Lopez MD [address] [place] [address] documented as of this encounter Procedures Procedure Name Priority Date/Time Associated Diagnosis Comments XR KNEE RT 2 VIEWS Routine 09/06/2023 11 :15 AM REVERSE UNIT OPERATOR Tibial plateau fracture, right, closed, with nonunion, subsequent encounter documented in this encounter Results * XR Knee Rt 2 Views (09/06/2023 11:15 AM REVERSE UNIT OPERATOR) Anatomical Region Laterality Modality Lower Extremity, Knee Computed R adiography 09/06/2023 11:1 5 AM REVERSE UNIT OPERATOR Narrative 09/06/2023 1:51 PM REVERSE UNIT OPERATOR EXAM: XR KNEE RT 2 VIEWS LOCATION: [place] [address] DATE: 09/06/2023 INDICATION: ORIF right tibial plateau fracture, Displaced bicondylar fracture of right t COMPARISON: 07/27/2023 IMPRESSION: Side plate and screw fixation healing fracture proximal right tibia. Appropriate alignment. Hardware intact. Procedure Note Corey Valdez MD - 09/06/2023 EXAM: XR KNEE RT 2 VIEWS LOCATION: [place] [address] DATE: 09/06/2023 INDICATION: ORIF right tibial plateau fracture, Displaced bicondylarfracture of right t COMPARISON: 07/27/2023 IMPRESSION: Side plate and screw fixation healing fracture proximal righttibia. Appropriate alignment. Hardware intact. Alicia Lopez MD RAD GD documented in this encounter Visit Diagnoses Diagnosis Tibial plateau fracture, right, closed, with nonunion, subsequent encounter documented in this encounter Care Teams Engineering Secretary Relationship Specialty Start Date End Date Found, No Pcp, [address] [place] [address] PCP - General 05/25/23 documented as of this encounter
--- OUTSIDE RECORDS SUMMARY | 2023-10-28 09:36 | XMS_ITS | Encounter Summary ---
Author Name Unknown Organization [facility] Address [address] [place] [address] Care Team Providers Care Nurse Care Manager Name Role Phone Found, No Pcp MD Primary Care Provider Unavailab le Reason for Visit * Reason Comments POST-OP,EXAM * Consult/Transfer Care (Routine) - New Request Specialty Diagnoses / Procedures Referred By Bebe t Referred To Contact Diagnoses Tibial plateau fracture, right, closed, with nonunion, subsequent encounter Mariposa Gusman APRN, MILANESE KNITTING MACHINE OPERATOR [address] [place] [address] Referral ID Status Reason Start Date Expiration Date V isits Requested Visits Authorized [id number] New Request 07/27/2023 10/25/2024 1 1 Encounter Details Date Type Department Care Team Description 08/12/2023 9:40 AM CDT Office Visit Specialty Center [address] [facility] [address] [place] [address]. [place] [address] Mariposa Gusman APRN, MILANESE KNITTING MACHINE OPERATOR [address] [place] [address] Closed fracture of right tibial plateau with routine healing, subsequent encounter (Primary Dx) Social History Tobacco [...] this encounter Patient Instructions * Patient Instructions* Mariposa Gusman APRN, CNP - 08/12/2023 9:40 AM CDT ORTHOPAEDICS DEPARTMENT PHONE NUMBER: [phone] l Reason for today's visit: folow-up Treatment plan: Continue TTWB RLE 6 wks post op Continue 325 ASA 6 wks post op Sutures removed, steri strips applied. May shower, do not scrub, rub or submerge. Follow up appointments: You will follow up with Mariposa Gusman NP in 4 week(s). X-Rays: You will have Right Leg X-Rays taken with your next Orthopaedics appointment. Please minutes early for your appointment. Reason for next Orthopaedics appointment: follow-up Please stop at the check out desk to schedule a follow up appointment. Use this grid to write down your next appointment. DATE & TIME PROVIDER LOCATION APPT NOTES ( ) [facility]: [address] [place] [address] ( ) [facility]: [address] [place], [place] ( ) Other: revision ORIF R tibial plateau w/bone graft, removal of loose lateral screw on 07/27/23 ( ) [facility]: [address] [place] [address] ( ) [facility] [address] [place], [place] ( ) Other: If you have any questions about your visit, your symptoms, your medication, your test results or itis not clear what your diagnosis or treatment plan is please contact us at [phone] or send us a secure message via [employer]. You may receive surveys via mail, e-mail or text regarding your visit and recovery. Your feedback is very important to us. Please take a moment to complete them. If you would like to speak to someonespecifically, you may contact the clinic at [phone] and your call will be directed to someone on our leadership team. Thank you for choosing Mariposa Gusman APRN, CNP and [facility]. If you need to schedule an appointment, you may call our office at [phone]. We are open Wednesday-Wednesday 8 am - 5 pm. Discharged by: documented in this encounter Progress Notes * Mariposa Gusman APRN, CNP - 08/12/2023 9:40 AM CDT Zay Dick is a 38 y.o. male who presents to my clinic today for his first post-operative follow-up status post revision ORIF R tibial plateau with bone graft and removal of loose lateral screw on 07/27/23. There were no complications to his surgery, made TTWB 6 wks. Today, he is doing fairly well. Notes pain but tolerable on baseline suboxone. Denies distal numbness or tingling but does note decreased sensation around incisions, unsure if this has improved at all. Fairly compliant with restricted weight bearing, using crutches (amp on LLE), using RLE for balance at time, discussedthis was okay. He is not yet working with PT and would like to defer until he is weight bearing. Hehas no cute concerns this morning. PHYSICAL EXAMINATION: Examination of the Right lower extremity revealed incision clean dry intact with no erythema or drainage. suture (s) are in place. Patient is able to fire EHL FHL TA GS. Sensation is intact to light touch over the top and the bottom of the foot. Decreased sensation around incisions. Toes are warm and well perfused. No images taken today. Intra-op images reviewed with pt. ASSESSMENT AND PLAN: Zay is doing well 2 weeks status post revision ORIF R tibial plateau with bone graft and removal of loose lateral screw on 07/27/23. - Weight bearing: continue TTWB RLE 6 wks post op - Pain management: continue baseline regimen - Sutures removed, steri strips applied. May shower, do not scrub, rub or submerge. - DVT prophylaxis: 325 ASA 6 wks post op - Follow up in 4 weeks with repeat images. Sooner if concerns. Mariposa Gusman APRN, CNP documented in this encounter Plan of Treatment Upcoming Encounters Date Type Department Care Team Description 11/29/2023 1:20 PM GLASS VIAL BENDING CONVEYOR FEEDER Appointment [facility] Clinic [address] [facility] [address] Alicia Lopez MD [address] [place] [address] Scheduled Referrals Name Type Priority Associated Diagnoses Orde r Schedule Orthopedic Referral Adult/Peds Referral Routine Tibial plateau fracture, right, closed, with nonunion, subsequent encounter Ordered: 07/27/2023 documented as of this encounter Visit Diagnoses Diagnosis Closed fracture of right tibial plateau with routine healing, subsequent encounter- Primary documented in this encounter Care Teams Nurse Care Manager Relationship Specialty Start Date End Date Found, No Pcp, [address] [place] [address] PCP - General 05/25/23 documented as of this encounter
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
--- OUTSIDE RECORDS SUMMARY | 2023-10-28 09:36 | XMS_ITS | Encounter Summary ---
Author Name Unknown Organization [facility] Address [address] [place] [address] Care Team Providers Care Barge Master Name Role Phone Found, No Pcp Primary Care Provider Unavailab le Encounter Details Date Type Department Care Team Description 09/23/2023 E-Visit Specialty [place] [address] [facility] [address] [place] [address] Nubia Chambers RN [address] [place] [address] Social History Tobacco Use Types Packs/Day Years [...] Department Care Team Description 11/29/2023 1:20 PM ACCOUNT EXECUTIVE SALES REPRESENTATIVE Appointment Specialty [place] [address] [facility] [address] [place] [address] Alicia Lopez MD [address] [place] [address] documented as of this encounter Visit Diagnoses Not on filedocumented in this encounter Care Teams Barge Master Relationship Specialty Start Date End Date Found, No Pcp, [address] [place] [address] PCP - General 05/25/23 documented as of this encounter
--- OUTSIDE RECORDS SUMMARY | 2023-10-28 09:37 | XMS_ITS | Encounter Summary ---
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; Unspecified severe protein-calorie malnutrition (HRC) Social History Tobacco Use Types Packs/Day Years [...] Department Care Team Description 11/29/2023 1:20 PM SUPERVISORY INVESTIGATIVE SPECIALIST Appointment [facility] 435 Orthopedics Clinic [address] [place] [address] Alicia Lopez MD [address] [place] [address] documented as of this encounter Procedures Procedure Name Priority Date/Time Associated Diagnosis Comments CBC AND DIFFERENTIAL PANEL Routine 05/10/2023 8:21 AM CDT 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 VITAMIN D 25-HYDROXY, TOTAL Routine 05/10/2023 8:21 AM CDT 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 Unspecified severe protein-calorie malnutrition (HRC) COMPLETE BLOOD COUNT-W/DIFF Routine 05/10/2023 8:21 AM CDT 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 BASIC METABOLIC PANEL Routine 05/10/2023 8:21 AM CDT 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 C-REACTIVE PROTEIN Routine 05/10/2023 8: 21 AM CDT 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5 - 35.2 g/dL 05/10/2023 11:51 AM [facility] RDW 13.8 11.9 - 15.5 % 05/10/2023 11:51 AM [facility] Platelets 240 150 - 450 x10(9)/L 05/10/2023 11:51 AM [facility] Automated NRBC 0 <=0 /100 WBC 05/10/2023 11:51 AM [facility] Neutrophil Absolute 5.8 1.7 - 7.0 10(9)/L 05/10/2023 11:51 AM [facility] Lymphocyte Absolute 2.7 1.0 - 4.8 10(9)/L 05/10/2023 11:[address] [facility] Monocyte Absolute 0.5 0.2 - 0.9 10(9)/L 05/10/2023 11:51 AM CDT [facility] Eosinophil Absolute 0.2 0.0 - 0.5 10(9)/L 05/10/2023 11:51 AM CDT [facility] Basophil Absolute 0.1 0.0 - 0.3 10(9)/L 05/10/2023 11:51 AM CDT [facility] Immature Granulocyte % 0.3 0.0 - 0.5 % 05/10/2023 11:51 AM CDT [facility] Blood Venipuncture / Unknown 05/10/2023 8:21 AM CDT 05/10/2023 8:21 AM CDT Alicia Lopez MD LAB_1 [place] [address], [facility] [phone] * (ABNORMAL) Vitamin D 25-Hydroxy, Total (05/10/2023 8:21 AM CDT) Vitamin D, 25-OH, Total 21(L) 30 - 80 ng/mL 05/10/2023 1:11 PM CDT [facility] Blood Venipuncture / Unknown 05/10/2023 8:21 AM CDT 05/10/2023 8:21 AM CDT Narrative [facility] - 05/10/2023 1:11 PM CDT Expected values Deficiency: <20 ng/mL Insufficiency: 20-29 ng/mL Optimum: 30-80 ng/mL Possible toxicity: >80 ng/mL Alicia Lopez MD LAB_1 [facility] [id number] [place] [address] * Basic Metabolic Panel (05/10/2023 8:21 AM CDT) Sodium 136 136 - 145 mmol/L 05/10/2023 12:54 PM T [facility] Potassium 4.5 3.5 - 5.1 mmol/L 05/10/2023 12:54 PM T [facility] Chloride 102 98 - 109 mmol/L 05/10/2023 12:54 PM T [facility] CO2 26 20 - 29 mmol/L 05/10/2023 12:54 PM T [facility] Anion Gap 8 7 - 16 mmol/L 05/10/2023 12:54 PM T [facility] Calcium 9.5 8.4 - 10.4 mg/dL 05/10/2023 12:54 PM [facility] BUN 13 7 - 26 mg/dL 05/10/2023 12:54 PM [facility] Creatinine 0.78 0.73 - 1.18 mg/dL 05/10/2023 12:54 PM [facility] Glucose 95 70 - 100 mg/dL 05/10/2023 12:54 PM [facility] Comment:The given reference range is for the fasting state. Non-fasting reference range for glucose is 70 - 180 mg/dL. Hours Fasting Unknown 05/10/2023 12:54 PM [facility] 435 LABORATORY GFR, Estimated >60 >60 mL/min/1. 73m2 05/10/2023 12:54 PM [facility] Blood Venipuncture / Unknown 05/10/2023 8:21 AM CDT 05/10/2023 8:21 AM CDT Alicia Lopez MD LAB_1 [facility] [address] [id number] [phone] [facility] 435 LABORATORY [address] [place], [place] [id number] [place] [address] * (ABNORMAL) C-Reactive Protein (05/10/2023 8:21 AM CDT) [facility] Signature C-Reactive Protein 1.8(H) 0.0 - 0.5 mg/dL 05/10/2023 12:54 PM CDT [facility] Blood Venipuncture / Unknown 05/10/2023 8:21 AM CDT 05/10/2023 8:21 AM CDT Alicia Lopez MD LAB_1 Performing Organization Address City/State/[facility] [[email or web address]] Co de Phone Number [facility] [address] [address] [phone] documented in this encounter Visit Diagnoses Diagnosis 

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
--- OUTSIDE RECORDS SUMMARY | 2023-10-28 09:37 | XMS_ITS | Encounter Summary ---
Author Name Unknown Organization [facility] Address [address] [place] [address] Care Team Providers Care Aircraft Fueler Name Role Phone [facility], Clinician Primary Care Provider Unavailable Reason for Visit * Procedure/Equipment (Routine) - Incomplete Specialty Diagnoses / Procedures Referred By Contac t Referred To Contact Diagnoses 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 Procedures CT Tibia Fibula Rt WO IV Cont Alicia Lopez MD [address] [place] [address] Referral ID Status Reason Start Date Expiration Date V isits Requested Visits Authorized [id number] Incomplete 05/10/2023 08/08/2024 1 1 Encounter Details Date Type Department Care Team Description 05/20/2023 8:00 AM CDT Ancillary Procedure [facility] [address] [facility] [place], [place] [id number] Alicia Lopez MD [address] [place] [address] 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 Social History Tobacco Use Types Packs/Day Years [...] Department Care Team Description 11/29/2023 1:20 PM MAIN GALLEY SCULLION Appointment Specialty Center [address] [place] [address]. [place] [address] Alicia Lopez MD [address] [place] [address] documented as of this encounter Visit Diagnoses Diagnosis 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 documented in this encounter Care Teams Aircraft Fueler Relationship Specialty Start Date End Date [facility] Clinician [address] [facility] [place] [address] PCP - General 06/05/22 05/24/23 documented as of this encounter
--- OUTSIDE RECORDS SUMMARY | 2023-10-28 09:37 | XMS_ITS | Encounter Summary ---
Author Name Unknown Organization [facility] Address [address] [place] [address] Care Team Providers Care Dicer Machine Operator Name Role Phone Found, No Pcp MD Primary Care Provider Unavailab le Reason for Visit * Reason Comments QUESTIONS, GENERAL Encounter Details Date Type Department Care Team Description 05/12/2023 Telephone Specialty Center [address] [facility] [place] [address]. [place], [place] [id number] Alicia Lopez MD [address] [place] [phone] QUESTIONS, GENERAL Social History Tobacco Use Types [...] as of this encounter Nursing Notes * Marcella Starr RN - 05/13/2023 10:38 AM CDT Patient was informed of information on note below. He verbalized understanding of information given. He states that he had forgotten about getting the CT scan. He was given the number to call and getthis scheduled. Marcella Starr RN 05/13/2023, 10:39 AM * Margaret Quijano RN - 05/12/2023 4:46 PM CDT Left message for pt to call back at [phone] and press the option for [facility]. Hourly Sign Language Interpreter can not locate any recent CT scan. Margaret Quijano RN 05/12/2023, 4:46 PM * Alicia Lopez MD - 05/12/2023 4:43 PM CDT Has Gurvinder scheduled for a CT scan yet? I would love to see him in clinic and discuss all the findings all together and how lab works and imaging fit together. I can see him as soon as this coming Wednesday with overbooking. Thank you * Margaret Quijano RN - 05/12/2023 3:32 PM CDT Component Latest Ref Rng 05/10/2023 WBC 3.5 - 10.5 x10(9)/L 9.4 RBC 4.32 - 5.72 x10(12)/L 4.81 Hemoglobin 13.5 - 17.5 g/dL 13.7 HCT 38.8 - 50.0 % 41.4 MCV 80.0 - 100.0 fL 86.1 MCH 27.6 - 33.3 pg 28.5 MCHC 31.5 - 35.2 g/dL 33.1 RDW 11.9 - 15.5 % 13.8 Platelets 150 - 450 x10(9)/L 240 NRBC AUTOMATED <=0 /100 WBC 0 Neutrophil Absolute 1.7 - 7.0 10(9)/L 5.8 Lymph Absolute 1.0 - 4.8 10(9)/L 2.7 [place] Absolute 0.2 - 0.9 10(9)/L 0.5 Eos Absolute 0.0 - 0.5 10(9)/L 0.2 Baso Absolute 0.0 - 0.3 10(9)/L 0.1 Immature Gran 0.0 - 0.5 % 0.3 Sodium 136 - 145 mmol/L 136 Potassium 3.5 - 5.1 mmol/L 4.5 Chloride 98 - 109 mmol/L 102 CO2 20 - 29 mmol/L 26 Anion Gap (calc.) 7 - 16 mmol/L 8 Calcium 8.4 - 10.4 mg/dL 9.5 BUN 7 - 26 mg/dL 13 Creatinine 0.73 - 1.18 mg/dL 0.78 Glucose 70 - 100 mg/dL 95 Hours Fasting Unknown GFR, Estimated >60 mL/min/1.73m2 >60 C-Reactive Protein 0.0 - 0.5 mg/dL 1.8 (H) Vitamin D,25 Hydroxy 30 - 80 ng/mL 21 (L) (H) High (L) Low Please advise thank you. Margaret Quijano RN 05/12/2023, 3:32 PM * Geno Vargas - 05/12/2023 3:12 PM CDT Has the patient recently had surgery or an injury? Yes. Date of Surgery: October 23, 2021 Type of SurgeryORIF R tib plateau, Left BKA DOS 10/28/2021 How may we help you today? Patient is calling wondering about his blood work results. Please advise. Is it okay to leave detailed message on your voicemail? Yes Geno Estevez Mai 05/12/2023, 3:13 PM documented in this encounter Plan of Treatment Upcoming Encounters Date Type Department Care Team Description 11/29/2023 1:20 PM BUTADIENE CONVERTER UTILITY OPERATOR Appointment Specialty Center [address] [facility] [place] [address]. [place] [address] [facility]ia Lopez MD [address] [facility] [phone] documented as of this encounter Visit Diagnoses Not on filedocumented in this encounter Care Teams Dicer Machine Operator Relationship Specialty Start Date End Date Found, No Pcp, [address] [place] [address] PCP - General 05/25/23 documented as of this encounter
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
--- OUTSIDE RECORDS SUMMARY | 2023-10-28 09:37 | XMS_ITS | Encounter Summary ---
Author Name Unknown Organization [facility] Address [address] [place] [address] Care Team Providers Care Waste Management Recycling Technician Name Role Phone [facility], Clinician Primary Care Provider Unavailable Reason for Visit * Procedure/Equipment (Routine) - Incomplete Specialty Diagnoses / Procedures Referred By Contac t Referred To Contact Diagnoses Postoperative examination Procedures XR Knee Rt 2 Views Alicia Lopez MD [address] [place] [address] Referral ID Status Reason Start Date Expiration Date V isits Requested Visits Authorized [id number] Incomplete 05/10/2023 08/08/2024 1 1 Encounter Details Date Type Department Care Team Description 05/10/2023 7:45 AM CDT Ancillary Procedure [facility] [address] [place] [address] [phone] Alicia Lopez MD [address] [place] [address] Postoperative examination Social History Tobacco Use Types [...] Department Care Team Description 11/29/2023 1:20 PM ACETALDEHYDE CONVERTER OPERATOR Appointment [facility] [address] [place] [address] Alicia Lopez MD [address] [place] [address] documented as of this encounter Procedures Procedure Name Priority Date/Time Associated Diagnosis Comments XR FEMUR LT 2 VIEWS Routine 05/10/2023 7 :37 AM CDT Postoperative examination XR KNEE RT 2 VIEWS Routine 05/10/2023 7: 37 AM CDT Postoperative examination documented in this encounter Results * XR Knee Rt 2 Views (05/10/2023 7:37 AM CDT) Anatomical Region Laterality Modality Lower Extremity, Knee Computed R adiography 05/10/2023 7:37 AM CDT Narrative 05/10/2023 7:47 AM CDT EXAM: XR KNEE RT 2 VIEWS LOCATION: [place] [address] DATE: 05/10/2023 INDICATION: Post op, Encounter for [...] EXAM: XR KNEE RT 2 VIEWS LOCATION: [place] [address] DATE: 05/10/2023 INDICATION: Post op, Encounter for follow-up examination afte COMPARISON: 06/08/2022 IMPRESSION: Again seen are postoperative changes from multiple screw andplate fixation across a fracture of the proximal tibial metaphysis, inunchanged alignment. Portions of the fracture lucency remains visible. Nodefinite evidence of interval healing compared to the prior study. Alicia Lopez MD RAD GD * XR Femur Lt 2 Views (05/10/2023 7:37 AM CDT) Anatomical Region Laterality Modality Lower Extremity, Leg, Thigh Comp uted Radiography 05/10/2023 7:37 AM CDT Narrative 05/10/2023 7:45 AM CDT EXAM: XR FEMUR LT 2 VIEWS LOCATION: [facility] 435 DATE: 05/10/2023 INDICATION: Post op, Encounter [...] EXAM: XR FEMUR LT 2 VIEWS LOCATION: [facility] 435 DATE: 05/10/2023 INDICATION: Post op, Encounter for follow-up examination afte COMPARISON: 06/08/2022 IMPRESSION: Again seen are postoperative changes from intramedullary rodwith interlocking and multiple cannulated screw fixation across acomminuted distal femoral shaft fracture in unchanged alignment. Hardwareappears intact and well seated. Portions of the fracture lucency remainvisible. Alicia Lopez MD RAD GD documented in this encounter Visit Diagnoses Diagnosis Postoperative examination Follow-up examination, following unspecified surgery documented in this encounter Care Teams Waste Management Recycling Technician Relationship Specialty Start Date End Date [facility] Clinician [address] [place] [address] PCP - General 06/05/22 05/24/23 documented as of this encounter
--- OUTSIDE RECORDS SUMMARY | 2023-10-28 09:37 | XMS_ITS | Encounter Summary ---
Author Name Unknown Organization [facility] Address [address] [place] [address] Care Team Providers Care Food Handler Name Role Phone Found, No Pcp MD Primary Care Provider Unavailab le Reason for Referral * Procedure/Equipment (Routine) - Incomplete Specialty Diagnoses / Procedures Referred By Contac t Referred To Contact Diagnoses Tibial plateau fracture, right, closed, with nonunion, subsequent encounter Procedures Case Request OR - Orthopedic Surgery: OPEN REDUCTION INTERNAL FIXATION TIBIAL PLATEAU FRACTURE Alicia Lopez MD [address] [place] [address] Referral ID Status Reason Start Date Expiration Date V isits Requested Visits Authorized [id number] Incomplete 06/21/2023 09/19/2024 1 1 Encounter Details Date Type Department Care Team Description 06/21/2023 Prep for Surgery Special[facility] [address] [place] [address]. [place] [address] Alicia Lopez MD [address] [place] [address] Tibial plateau fracture, right, closed, with nonunion, [...] Department Care Team Description 11/29/2023 1:20 PM ATHLETIC EVENTS SCORER Appointment [facility] [address] [place] [address]. [place] [address] Alicia Lopez MD [address] [place] [address] documented as of this encounter Visit Diagnoses Diagnosis Tibial plateau fracture, right, closed, with nonunion, subsequent encounter- Primary documented in this encounter Care Teams Food Handler Relationship Specialty Start Date End Date Found, No Pcp, [address] [place] [address] PCP - General 05/25/23 documented as of this encounter
--- OUTSIDE RECORDS SUMMARY | 2023-10-28 09:37 | XMS_ITS | Encounter Summary ---
Author Name Unknown Organization [facility] Address [address] [place] [address] Care Team Providers Care Music Engineer Name Role Phone Found, No Pcp MD Primary Care Provider Unavailab le Reason for Visit * Reason Comments Surgery Questions Encounter Details Date Type Department Care Team Description 06/21/2023 Telephone [facility] [address] [place] [address]. [place], [place] [phone] Alicia Lopez MD [address] [place] [address] [phone] Surgery Questions Social History Tobacco Use Types Packs/Day Years Used Date Smoking Tobacco: Never Smokeless Tobacco: Never Alcohol Use Standard Drinks/Week Comments Yes 0 (1 standard drink = 0.6 oz pur e alcohol) Sex and Gender Information Value Date Recorded Sex Assigned at Not on file Gender Identity Not on file Sexual Orientation Not on file documented as of this encounter Nursing Notes * Cecilia Guaman - 06/21/2023 4:04 PM CDT PATIENTS SURGERY IS SCHEDULED FOR 06/29/2023. Cecilia Guaman 06/21/2023, 4:04 PM * Margaret Quijano RN - 06/21/2023 11:03 AM CDT What question? Called and spoke with the patient and he is just wondering what is the soonest I could have my surgery? Please advise thank you. Margaret Quijano, RN 06/21/2023, 11:12 AM * Lyn Gauthier - 06/21/2023 10:20 AM CDT Has the patient recently had surgery or an injury? Yes. Date of Surgery: ORIF R tib plateau, Left BKA DOS 10/28/2021 How may we help you today? The patient called requesting to speak with Dr. Lopez. Describe your symptoms/concerns: It is regarding questions they have about the upcoming surgery. Have you been seen for this recently?: no [Personnel Specialist/Appt Center: If yes, please include date and provider.] Is it okay to leave detailed message on your voicemail? Yes Lyn Gauthier 06/21/2023, 10:22 AM documented in this encounter Plan of Treatment Upcoming Encounters Date Type Department Care Team Description 11/29/2023 1:20 PM AIRCRAFT ARMAMENT MECHANIC Appointment [facility] [address] [place] [address]. [place] [address] Alicia Lopez MD [address] [place] [address] documented as of this encounter Visit Diagnoses Not on filedocumented in this encounter Care Teams Music Engineer Relationship Specialty Start Date End Date Found, No Pcp, [address] [place] [address] PCP - General 05/25/23 documented as of this encounter
--- OUTSIDE RECORDS SUMMARY | 2023-10-28 09:37 | XMS_ITS | Encounter Summary ---
Author Name Unknown Organization [facility] Address [address] [place] [address] Care Team Providers Care Supervisor Sewing Department Name Role Phone Found, No Pcp MD Primary Care Provider Unavailab le Reason for Visit * Procedure/Equipment (Routine) - Incomplete Specialty Diagnoses / Procedures Referred By Contac t Referred To Contact Diagnoses Closed fracture of right tibial plateau with routine healing, subsequent encounter Procedures CT Tibia Fibula Rt WO IV Cont Alicia Lopez MD [address] [place] [address] Referral ID Status Reason Start Date Expiration Date V isits Requested Visits Authorized [id number] Incomplete 06/08/2022 09/07/2023 1 1 Encounter Details Date Type Department Care Team Description 05/26/2023 2:30 PM CDT Ancillary Procedure [facility] [address] [facility] [place], [place] [id number] Alicia Lopez MD [address] [place] [address] Closed fracture of right tibial plateau with routine healing, subsequent encounter Social History Tobacco Use Types [...] Department Care Team Description 11/29/2023 1:20 PM KEY ACCOUNT MANAGER Appointment [facility] [address] [place] [address] Alicia Lopez MD [address] [place] [address] documented as of this encounter Procedures Procedure Name Priority Date/Time Associated Diagnosis Comments CT TIBIA FIBULA RT WO IV CONT STAT 05/26/2023 2:28 PM CDT Closed fracture of right tibial plateau with routine healing, subsequent encounter documented in this encounter Results * CT Tibia Fibula Rt WO IV Cont (05/26/2023 2:28 PM CDT) Anatomical Region Laterality Modality Lower Extremity, Skeletal, K nee, Leg, Ankle, Foot & Ankle Computed Tomography 05/26/2023 2:28 PM CDT Narrative 05/26/2023 4:17 PM CDT EXAM: CT TIBIA FIBULA RT WO IV CONT LOC[facility]: [facility] DATE: 05/26/2023 INDICATION: Surgical planning. Displaced fracture of the right tibia. COMPARISON: Right knee radiographs 05/10/[address] right tibia/fibula 07/08/2022. TECHNIQUE: Noncontrast. Axial, sagittal and coronal thin-section reconstruction. Dose reduction techniques were used. FINDINGS: BONES: -Prior open reduction and plate and screw fixation of a comminuted right tibial plateau fracture. No evidence of hardware failure. Alignment is unchanged when compared to recent comparison radiographs (with respect to differences in technique) and more remote comparison CT. No significant change in irregularity of the lateral tibial articular surface with 2 mm step-off posteriorly. No evidence of bony bridging with mature cortical formation at the margins of the dominant fracture fragments (series 4 image 64 for example). -Disuse osteopenia. No new fracture. SOFT TISSUES: -Negative. IMPRESSION: 1. ??Prior open reduction with internal fixation of an ununited comminuted proximal right tibial fracture with extension into the lateral tibial plateau. Alignment is unchanged. No evidence of hardware failure. 2. ??Unchanged irregularity of the lateral tibial articular surface with mild posterior articular step-off. 3. ??Disuse osteopenia. Procedure Note Kaz Fisher DO - 05/26/2023 EXAM: CT TIBIA FIBULA RT WO IV CONT [facility]: [facility] DATE: 05/26/2023 INDICATION: Surgical planning. Displaced fracture of the right tibia. COMPARISON: Right knee radiographs 05/10/[address] right tibia/[id number]/08/2022. TECHNIQUE: Noncontrast. Axial, sagittal and coronal thin-sectionreconstruction. Dose reduction techniques were used. FINDINGS: BONES: -Prior open reduction and plate and screw fixation of a comminuted righttibial plateau fracture. No evidence of hardware failure. Alignment isunchanged when compared to recent comparison radiographs (with respect todifferences in technique) and more remote comparison CT. No significantchange in irregularity of the lateral tibial articular surface with 2 mmstep-off posteriorly. No evidence of bony bridging with mature corticalformation at the margins of the dominant fracture fragments (series 4image 64 for example). -Disuse osteopenia. No new fracture. SOFT TISSUES: -Negative. IMPRESSION: 1. Prior open reduction with internal fixation of an ununited comminutedproximal right tibial fracture with extension into the lateral tibialplateau. Alignment is unchanged. No evidence of hardware failure. 2. Unchanged irregularity of the lateral tibial articular surface withmild posterior articular step-off. 3. Disuse osteopenia. Alicia Lopez MD RAD CT documented in this encounter Visit Diagnoses Diagnosis Closed fracture of right tibial plateau with routine healing, subsequent encounter documented in this encounter Care Teams Supervisor Sewing Department Relationship Specialty Start Date End Date Found, No Pcp, [address] [place] [address] PCP - General 05/25/23 documented as of this encounter
--- OUTSIDE RECORDS SUMMARY | 2023-10-28 09:37 | XMS_ITS | Encounter Summary ---
Author Name Unknown Organization [facility] Address [address] [place] [address] Care Team Providers Care Sample Washer Name Role Phone Found, No Pcp MD Primary Care Provider Unavailab le Reason for Visit * Auth/Cert Specialty Diagnoses / Procedures Referred By Contac t Referred To Contact Diagnoses Tibial plateau fracture, right, closed, with nonunion, subsequent encounter . Procedures OPEN REDUCTION INTERNAL FIXATION TIBIAL PLATEAU FRACTURE Referral ID Status Reason Start Date Expiration Date Visits Re quested Visits Authorized [id number] 1 1 Encounter Details Date Type Department Care Team Description 07/27/2023 9:50 AM CDT Ancillary Procedure [facility] [address] [place] [address] Ailcia Lopez MD [address] [place] [phone] Social History Tobacco Use Types Packs/Day Years [...] Department Care Team Description 11/29/2023 1:20 PM SOAPING DEPARTMENT SUPERVISOR Appointment [facility] [address] [place] [address] Alicia Lopez MD [address] [place] [phone] documented as of this encounter Procedures Procedure Name Priority Date/Time Associated Diagnosis Comments XR C-ARM 1.5-2 HOURS Routine 07/27/2023 12:49 PM CDT documented in this encounter Results * XR C-Arm 1.5-2 Hours (07/27/2023 12:49 PM CDT) Anatomical Region Laterality Modality X-Ray Angiograph y Narrative 07/27/2023 12:49 PM CDT Fluoroscopy provided by a ct mri technologist. Exact fluoroscopy time is documented in end of exam information in EPIC Alicia Lopez MD RAD GD documented in this encounter Visit Diagnoses Not on filedocumented in this encounter Care Teams Sample Washer Relationship Specialty Start Date End Date Found, No Pcp, [address] [place] [address] PCP - General 05/25/23 documented as of this encounter
--- OUTSIDE RECORDS SUMMARY | 2023-10-28 09:38 | XMS_ITS | Encounter Summary ---
Author Name Unknown Organization [facility] Address [facility] [place] [address] Care Team Providers Care Survey Chief Name Role Phone Rony Middleton MD Unavailable [phone] Rony Middleton MD Unavailable [phone] System, Provider Not In Primary Care Provider Un available Charly Sierra MD Unavailable [phone] Encounter Details Date Type Department Care Team ([facility] st Contact Info) Description 04/11/2019 Telephone [facility] Behavioral Health Intake [address] [place] [address] Generic, Behavioral Intake, Social History Tobacco Use Types Packs/Day Years Used Date Smoking Tobacco: Never Assessed Sex and Gender Information Value Date Recorded Sex Assigned at Not on file Gender Identity Not on file Sexual Orientation Not on file documented as of this encounter Miscellaneous Notes * Telephone Encounter - Jamil Craft - 04/11/2019 12:31 PM CDT Received call from Silvia, stated she did not know nor did the client if he have Medicare. Viviana have been verified, client have medicare coverage, Silvia was notified. JT * Telephone Encounter - Dior Meadows - 04/11/2019 10:54 AM CDT 04-11-19 Requested reed, added [facility] funds. fb * Telephone Encounter - Dior Meadows - 04/11/2019 10:47 AM CDT 04-11-19 Recv'd 25 page fax from Silvia [facility] [phone]. L/M for her to call intake re: client possibly having Medicare per her cover sheet. If she is referring him to [facility] I said we can't accept anyone with Medicare. I left intake number for her to call back. Filed at this time. fb documented in this encounter Plan of Treatment Not on file documented as of this encounter Visit Diagnoses Not on filedocumented in this encounter Care Teams Survey Chief Relationship Specialty Start Date End Date System, Provider Not In PCP - General Clinic 12/21/18 Rony Middleton MD Orthopedics 12/16/18 Rony Middleton MD Orthopedics 12/15/18 Charly Sierra MD [address] [address] Assigned Musculoskeletal Provider 08/02/20 09/27/21 documented as of this encounter
--- OUTSIDE RECORDS SUMMARY | 2023-10-28 09:38 | XMS_ITS | Clinical Summary ---
Author Name Unknown Organization [facility] Address [facility] [place] [address] Care Team Providers Care Take Away Attendant Name Role Phone Rony Middleton MD Unavailable [phone] Rony Middleton MD Unavailable [phone] System, Provider Not In Primary Care Provider Un available Allergies No known active allergies Medications Medication Sig Dispensed Refills Start Date End Date Status buprenorphine HCl-naloxone HCl (SUBOXONE) 4-[address] 1 Film under the tongue 2 times daily 0 Active traZODone (DESYREL) 100 MG tablet 0 09/02/2021 Active buPROPion (WELLBUTRIN XL) 300 MG 24 hr tablet 0 08/12/2021 Active meclizine (ANTIVERT) 25 MG tablet Take 25 mg by mouth every 8 hours as needed for dizziness 0 Active ibuprofen (ADVIL/MOTRIN) 800 MG tablet Take 800 mg by mouth every 12 hours as needed for moderate pain 0 Active QUEtiapine (SEROQUEL) 50 MG tablet Take 1 tablet (50 mg) by mouth at bedtime as needed, may repeat once (sleep) 30 tablet 0 09/15/2021 Active QUEtiapine (SEROQUEL) 50 MG tablet Take 1 tablet (50 mg) by mouth At Bedtime 30 tablet 0 09/16/2021 Active Social History Tobacco Use Types Packs/Day Years Used Date Smoking Tobacco: Every Day Cigarettes Vaping Device Smokeless Tobacco: Current Chew Alcohol Use Standard Drinks/Week Comments Not Currently 0 (1 standard drink = 0.6 oz pur e alcohol) PHQ-2 Answer Date Recorded PHQ-2 Score 1 03/25/2020 Adolescent Education Answer Date Record ed Getting School Help Needed Not on file 07/02 Sex and Gender Information Value Date Recorded Sex Assigned at Not on file Gender Identity Not on file Sexual Orientation Not on file Last Filed Vital Signs Vital Sign Reading Time Taken Comments Blood Pressure 107/52 09/15/2021 3:38 PM BEAUTY CULTURE TEACHER Pulse 89 09/15/2021 3:38 PM BEAUTY CULTURE TEACHER Temperature 37 ??C (98.6 ??F) 09/15/2021 3:38 PM BEAUTY CULTURE TEACHER Respiratory Rate 16 09/15/2021 3:38 PM BEAUTY CULTURE TEACHER Oxygen Saturation 97% 09/15/2021 3:38 PM BEAUTY CULTURE TEACHER Inhaled Oxygen Concentration - - Weight 78.2 kg (172 lb 8 oz) 09/15/2021 3:38 PM BEAUTY CULTURE TEACHER Height 179.5 cm (5' 10.67) 03/25/2020 9:09 AM C DT Body Mass Index 24.28 03/25/2020 9:09 AM CDT Plan of Treatment Health Maintenance Due Date Last Done Comments ADVANCE CARE PLANNING 1984 ANNUAL REVIEW OF HM ORDERS 1984 HEPATITIS B IMMUNIZATION (1 of 3 - 3-dose series) 1984 COVID-19 Vaccine (#1) 1984 IPV IMMUNIZATION (2 of 3 - 4-dose series) 08/16/1985 07/19/1985 Pneumococcal Vaccine: Pediatrics (0 to 5 Years) and At-Risk Patients (6 to 64 Years) (1 of 2 - PCV) 1990 HIV SCREENING 1999 HEPATITIS C SCREENING 2002 LIPID 2019 MEDICARE ANNUAL WELLNESS VISIT 07/05/2021 07/05/2020 INFLUENZA VACCINE (#1) 2023 08/19/2021, 2019 PHQ-2 (once per calendar year) 2023 03/25/2020 DTAP/TDAP/TD IMMUNIZATION (5 - Td or Tdap) 08/19/2031 08/19/2021, 12/02/2007, 07/29/2003, Additional history exists HPV IMMUNIZATION Aged Out No longer e ligible based on patient's age to complete this topic MENINGITIS IMMUNIZATION Aged Out No l onger eligible based on patient's age to complete this topic RSV MONOCLONAL ANTIBODY Aged Out No l onger eligible based on patient's age to complete this topic Care Teams Take Away Attendant Relationship Specialty Start Date End Date System, Provider Not In PCP - General Clinic 12/21/18 Rony Middleton MD Orthopedics 12/16/18 Rony Middleton MD Orthopedics 12/15/18
--- OUTSIDE RECORDS SUMMARY | 2023-10-28 09:38 | XMS_ITS | Clinical Summary ---
Author Name Unknown Organization [employer] [facility] Address [place], [place] [address] Care Team Providers Care Administrative Law Judge Name Role Phone Pcp, No Primary Care Provider Unavailabl e Allergies No known active allergies Medications Medication Sig Dispensed Refills Start Date End Date Status SUBOXONE film sublingual PLACE 1/2 FILM UNDER THE TONGUE ONCE A DAY 0 06/12/2020 Active QUEtiapine (SEROQUEL) 100 mg tablet Take 100 mg by mouth at bedtime. 0 12/09/2021 Active omeprazole (PRILOSEC) 40 mg Delayed-Release capsuleIndications:G astric reflux Take 1 Capsule (40 mg) by mouth once daily before a meal. 90 Capsule 1 01/29/2023 Active gabapentin (NEURONTIN) 800 mg tabletIndications:Re stless legs syndrome Take 0.5 Tablets (400 mg) by mouth at bedtime. 45 Tablet 1 01/29/2023 Active cloNIDine HCL (CATAPRES) 0.2 mg tablet Take 0.2 mg by mouth 3 times daily if needed. FOR ANXIETY 0 07/07/2023 Active benzonatate (Tessalon Perles) 100 mg capsuleIndications:B ronchitis Take 1 Capsule (100 mg) by mouth 3 times daily if needed for Cough. 21 Capsule 0 07/10/2023 Active Active Problems Problem Noted Date Diagnosed Date S/P BKA (below knee amputation) unilateral, left 01/30/2023 Psychoactive substance dependence 01/30/2023 Severe depression 12/17/2021 Subclinical hypothyroidism 12/03/2020 Vitamin D deficiency 12/03/2020 Carpal tunnel syndrome 08/18/2011 Pain medication agreement 06/12/2011 Chronic pain 02/24/2011 Fracture of shaft of tibia and fibula, open 01/10 Overview: Last Assessment & Plan: A: 33 y.o. male 7.5 years s/p the above L tibial shaft procedures, returning today for f/u. Severe pain of LLE. Patient considering amputation. P: - I believe that amputation may be an option however there may still be a possibility to salvage the leg with ex fix. Will refer patient to Dr. Sierra for second opinion. If he feels that there is an option to salvage the leg, I feel that the patient should pursue this option. If note, we will consider L BKA. Fracture of tibia 01/06/2007 Overview: Last Assessment & Plan: A: 31 y.o. male s/p many revision L tibia surgeries 2/2 severe open tibia fracture many years ago. Most recently, is 6 years s/p the above L tibial shaft procedures. Continues to have severe L lower leg pain with walking and suffering from L ankle and L knee arthritis. P: -We have discussed amputation several times and at this time would like to start the process of considering L BKA. -Will visit [facility] prosthetics to discuss options for prosthetics -RTC in 6 weeks for clinical f/u Resolved Problems Problem Noted Date Diagnosed Date Resolved Date Chronic osteomyelitis of lower leg 04/15/2007 01/30/2023 Overview: Last Assessment & Plan: See above. Immunizations Name Administration Dates Next Due COVID-19 vaccine ([place] 30mcg/0.3mL) PF, MDV 06/04/2021,05/14/2021 DTP 06/09/1990, 0,03/12/1988,07/19 DTaP 07/19/1985 Influenza Virus, Unspecified 08/19/2021 Influenza, IIV4 08/19/2021,07/05/2020 MMR 06/13/1997,11/09/1989 Oral Polio Vaccine 06/09/1990, 0,03/12/1988,07/19 Polio Virus, Unspecified 07/19/1985 Td (Age >=7 Years) 07/19/2003,06/13/1997 Td, Preservative Free (age > = 7 Years) 07/29/2003,1984 Tdap 12/02/2007 12/02/2017 Tdap, Unspecified 08/19/2021 Family History Medical History Relation Name Comments No Known Problems Brother Emphysema Father Depression Mother Osteoporosis Mother Thyroid Disease Mother No Known Problems Sister Relation Name Status Comments Brother Alive Father Alive Mother Alive Sister Alive Social History Tobacco Use Types Packs/Day Years Used Date Smoking Tobacco: Every Day Cigarettes Smokeless Tobacco: Never Tobacco Cessation:Ready to Q uit: No; Counseling Given: Yes Alcohol Use Standard Drinks/Week Comments Not Currently 0 (1 standard drink = 0.6 oz pur e alcohol) occ PHQ-2 Answer Date Recorded PHQ-2 TOTAL SCORE 6 01/29/2023 Social Connections Answer Date Recorded Frequency of Communication with Friends and Fami ly Not on file 10/11/2021 Financial Resource Strain Answer Date R ecorded Difficulty of Paying Living Expenses Not on file 10/11/2021 Difficulty of Paying Living Expenses Not on file 10/11/2021 Sex and Gender Information Value Date Recorded Sex Assigned at Not on file Gender Identity Not on file Sexual Orientation Not on file Obstetrics History Last Filed Vital Signs Vital Sign Reading Time Taken Comments Blood Pressure 109/56 07/10/2023 4:34 PM CDT Pulse 76 07/10/2023 4:34 PM CDT Temperature 36.4 ??C (97.6 ??F) 07/10/2023 4 :34 PM CDT Respiratory Rate 16 07/10/2023 4:34 PM CDT Oxygen Saturation 95% 07/10/2023 4:3 4 PM CDT Inhaled Oxygen Concentration - - Weight 86.5 kg (190 lb 12.8 oz) 023 4:34 PM CDT Height 177.8 cm (5' 10) 01/29/2023 10: 04 AM CDT with shoes Body Mass Index 27.38 01/29/2023 10:04 AM CDT Plan of Treatment Health Maintenance Due Date Last Done Comments Pneumococcal series for age 6-64 (1 of 2 - PCV) 1990 COVID-19 vaccine series (2022- season) 2023 06/04/2021, 05/14/2021 Influenza for age 9-49 06/11/2023 , 08/19/2021, 07/05/2020 BMI (ht and wt on same day) for age 18+ 01/30/2024 01/29/2023, 11/29/2020, 07/05/2020, Additional history exists Depression screening for age 12+ 01/30/2024 01/29/2023, 12/03/2020, 12/03/2020, Additional history exists Lipids for age 35-44 01/30/2028 01/29/2023, 07/05/20 20 Tetanus booster 08/19/2031 08/19/2021, 11/12, 07/29/2003, Additional history exists HIV for age 15-65 Completed 11/29/2020 Hepatitis C screening for ag e 18-79 Completed 11/29/2020 Tdap Completed 08/19/2021, 12/02/2007 Care Teams Administrative Law Judge Relationship Specialty Start Date End Date Pcp, No . PCP - General 03/29/12
--- OUTSIDE RECORDS SUMMARY | 2023-10-28 09:38 | XMS_ITS | Referral Summary ---
Author Name Unknown Organization [facility] Address [facility] [place] [address] Care Team Providers Care Recreation Aide Name Role Phone Rony Middleton MD Unavailable [phone] Rony Middleton MD Unavailable [phone] System, Provider Not In Primary Care [...] Comments Blood Pressure 107/52 09/15/2021 3:38 PM CHICKEN PICKER Pulse 89 09/15/2021 3:38 PM CHICKEN PICKER Temperature 37 ??C (98.6 ??F) 09/15/2021 3:38 PM CHICKEN PICKER Respiratory Rate 16 09/15/2021 3:38 PM CHICKEN PICKER Oxygen Saturation 97% 09/15/2021 3:38 PM CHICKEN PICKER Inhaled Oxygen Concentration - - Weight 78.2 kg (172 lb 8 oz) 09/15/2021 3:38 PM CHICKEN PICKER Height 179.5 cm (5' 10.67) 03/25/2020 9:09 AM C DT Body Mass Index 24.28 03/25/2020 9:09 AM CDT Plan of Treatment Not on file Care Teams Recreation Aide Relationship Specialty Start Date End Date System, Provider Not In PCP - General Clinic 12/21/18 Rony Middleton MD Orthopedics 12/16/18 Rony Middleton MD Orthopedics 12/15/18
--- OUTSIDE RECORDS SUMMARY | 2023-10-28 09:38 | XMS_ITS | Encounter Summary ---
Author Name Unknown Organization [facility] Address [address] [place] [address] Care Team Providers Care Author Agent Name Role Phone [facility], Clinician Primary Care Provider Unavailable Encounter Details Date Type Department Care Team Description 10/19/2022 Telephone Specialty Center [facility] [address] [place] [id number] Alicia Lopez MD [address] [place] [address] [phone] Social History Tobacco Use Types Packs/Day Years [...] Department Care Team Description 11/29/2023 1:20 PM IN HOME SALES CONSULTANT Appointment [place] [id number] [address] Alicia Lopez MD [address] [place] [address] [phone] documented as of this encounter Visit Diagnoses Not on filedocumented in this encounter Care Teams Author Agent Relationship Specialty Start Date End Date Madelaine De Leon [address] [place] [address] PCP - General 06/05/22 05/24/23 documented as of this encounter
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
== END 2023-10-28 09:31 | disposition home or self-care (01) ==
PROVIDERS: PCP Internal Medicine Addiction Medicine; Visit Provider Internal Medicine Addiction Medicine
DX: F11.90 Opioid use, unspecified, uncomplicated (principal); Z11.3 Encounter for screening for infections with a predominantly sexual mode of transmission
CPT/HCPCS: 86592; 86703; 86803

== ENCOUNTER 2024-09-23 14:44 | Outpatient (CLI) | payer MEDICARE, MEDICAID, SELFPAY | END 2024-09-23 14:45 | disposition home or self-care (01) | LOC: NFLDUCREF 14:46 | PROVIDERS: Visit Provider Nurse Practitioner Family | DX: R39.9 Unspecified symptoms and signs involving the genitourinary system (principal) | CPT/HCPCS: 87086 ==